=== PATIENT | male | born 1940 | race Caucasian/White ===

== ENCOUNTER 2017-05-29 11:09 | Emergency (ER) | payer MEDICARE, OTHER ==
--- OUTSIDE RECORDS SUMMARY | 2017-05-29 11:11 | XMS | Clinical Summary ---
:1940 Author Organization [facility] Address [address] [place] [address] Phone Care Team Providers Name Role Phone , Primary Care Provider Unavailable Allergies Not on File Current Medications Not on file Active Problems Not on file Social History Tobacco Use Types Packs/Day Years Used Date Never Assessed Sex Assigned at Date Recorded Not on file Last Filed Vital Signs Not on file Plan of Treatment Not on file Results Not on filefrom Last 3 Months
--- NOTE | 2017-05-29 13:00 | CT ---
CT BRAIN WITHOUT CONTRAST: Date: 05/29/17 HISTORY: Headache. FINDINGS: There are no previous exams for comparison. No evidence of acute infarct, hemorrhage, midline shift, or abnormal extra-axial fluid collections a re seen. The ventricular size is appropriate and the basilar cisterns are patent. The bony calvarium is intact. There is mild mucosal disease in the paranasal sinuses. IMPRESSION: No CT evidence of acute intracranial process. POS: [facility]
[2017-05-29 13:37] LABS: #Basophils 0.1 thou/uL (0.0-0.2); #Eosinphils 0.5 thou/uL (0.0-0.7); #Lymphocytes 2.3 thou/uL (1.20-3.40); #Monocytes 0.5 thou/uL (0.11-0.59); %Eosinophils 6.9 % (0.0-10.0); %Lymphocytes 30.8 % (21.0-51.0); %Monocytes 6.8 % (0.0-10.0); Hematocrit 50.2 % (42.0-52.0); Mean Platelet Volume 6.9 fL (7.4-10.4); Red Blood Cell (RBC) Count 5.24 mill/uL (4.70-6.10); White Blood Cell (WBC) Count 7.4 thou/uL (4.8-10.8)
[2017-05-29 14:03] LABS: ALT (SGPT) 19 U/L (8-55); AST (SGOT) 22 U/L (5-34); Alkaline Phosphatase 139 U/L (40-150); Anion Gap 9 mmol/L (10-20); BUN (Urea Nitrogen) 13 mg/dL (8.4-25.7); Bilirubin, Total 0.4 mg/dL (0.2-1.2); Calc. Creatinine Clearance 0 mL/min (70-130); Carbon Dioxide 26 mmol/L (23-31); Chloride 107 mmol/L (98-107); Estimated GFR-MDRD 70; Protein, Total 6.7 g/dL (5.8-8.1)
== END 2017-05-29 14:30 | disposition home or self-care (01) ==
LOC: ERS 11:09
DX: R51 Headache (principal); E78.5 Hyperlipidemia, unspecified; I10 Essential (primary) hypertension; I49.9 Cardiac arrhythmia, unspecified; Z87.891 Personal history of nicotine dependence; Z79.899 Other long term (current) drug therapy
CPT/HCPCS: 36415; 70450; 80053; 85025; 85652; 86140

== ENCOUNTER 2017-12-27 13:45 | Outpatient (CLI) | payer MEDICARE, OTHER | END 2017-12-27 13:46 | disposition home or self-care (01) | LOC: BICRAD 13:45 | PROVIDERS: ATTEND Physical Medicine & Rehabilitation | DX: M54.5 Low back pain (principal); M47.896 Other spondylosis, lumbar region | CPT/HCPCS: 72100 ==

== ENCOUNTER 2019-05-14 06:45 | Day surgery (SDC) | payer MEDICARE, OTHER ==
[2019-05-14 08:11] LABS: #Eosinphils 0.5 thou/uL (0.0-0.7); #Lymphocytes 1.7 thou/uL (1.20-3.40); #Monocytes 0.6 thou/uL (0.11-0.59); #Neutrophils 4.5 thou/uL (1.40-6.50); %Basophils 0.7 % (0.0-1.0); %Eosinophils 6.9 % (0.0-10.0); %Lymphocytes 23.1 % (21.0-51.0); %Monocytes 7.5 % (0.0-10.0); %Neutrophils 61.8 % (42.0-75.0); Hemoglobin 16.2 g/dL (14.0-18.0); Mean Corpuscular HGB CONC 33.9 g/dL (32.0-36.0); Mean Corpuscular Hemoglobin 32.1 pg (27.0-31.0); Mean Corpuscular Volume 94.8 fL (78.0-98.0); Mean Platelet Volume 6.6 fL (7.4-10.4); Platelet Count 188 thou/uL (130-400); RBC Distribution Width 11.9 % (11.5-14.5); Red Blood Cell (RBC) Count 5.03 mill/uL (4.70-6.10); White Blood Cell (WBC) Count 7.3 thou/uL (4.8-10.8)
[2019-05-14 08:14] LABS: ALT (SGPT) 21 U/L (8-55); AST (SGOT) 23 U/L (5-34); Albumin 4.2 g/dL (3.4-4.8); Alkaline Phosphatase 176 U/L (40-150); Anion Gap 8 mmol/L (10-20); BUN (Urea Nitrogen) 11 mg/dL (8.4-25.7); Calc. Creatinine Clearance 64 mL/min (70-130); Calcium 9.8 mg/dL (7.8-10.44); Carbon Dioxide 32 mmol/L (23-31); Chloride 102 mmol/L (98-107); Estimated GFR-MDRD 57; Globulin 2.8 g/dL (2.4-3.5); Glucose 118 mg/dL (83-110); Potassium 4.3 mmol/L (3.5-5.1); Sodium 138 mmol/L (136-145)
[2019-05-14] MEDS ORDERED: Methylene Blue 50 MG/10 ML AMPUL ONE (08:42)
[2019-05-14] MEDS ORDERED: Lidocaine 2% PF 5 ML VIAL ONE (08:42)
[2019-05-14] MEDS ORDERED: Bacitracin Zinc Ointment 30 gm TUBE ONE (08:42)
[2019-05-14] MEDS ORDERED: Bupivacaine HCl 0.5%/Epinephrine 1:200,000/PF 30 ml Vial ONE (08:42)
[2019-05-14] MEDS ORDERED: Fentanyl 100 MCG/2 ML VIAL ONE (08:42)
[2019-05-14] MEDS ORDERED: cefOXitin 2 GM VIAL ONE (08:58)
[2019-05-14] MEDS ORDERED: Sodium Chloride 0.9% 100 ML ONE (08:58)
[2019-05-14] MEDS ORDERED: Dexamethasone 20 MG/5 ML VIAL ONE (12:48)
[2019-05-14] MEDS ORDERED: Lidocaine 1% PF 5 ML VIAL ONE (12:48)
[2019-05-14] MEDS ORDERED: Ketorolac Tromethamine 30 MG/ML VIAL ONE (12:48)
[2019-05-14] MEDS ORDERED: PROPOFOL 200 MG/20 ML VIAL ONE (12:48)
[2019-05-14] MEDS ORDERED: Ondansetron PF 4 MG/2 ML Vial ONE (12:48)
--- NOTE | 2019-05-14 18:14 | EKG ---
Test Reason : PREOP Blood Pressure : / mmHG Vent. Rate : 062 BPM Atrial Rate : 000 BPM P-R Int : 000 ms QRS Dur : 162 ms QT Int : 528 ms P-R-T Axes : 136 -67 107 degrees QTc Int : 535 ms AV dual-paced rhythm Abnormal ECG When compared with ECG of 05-JUL-2015 12:42, Electronic ventricular pacemaker has replaced Sinus rhythm Confirmed by DR. Sade CHING ([id number]) on 05/14/2019 6:14:15 PM Referred By: SHANAE Confirmed By:DR. Sade CHING
--- NOTE | 2019-05-15 08:57 | OP ---
DATE OF PROCEDURE: 05/14/2019 PREOPERATIVE DIAGNOSIS: Anal mass. PROCEDURE PERFORMED: Excisional biopsy. INDICATIONS FOR PROCEDURE: A 78-year-old male, who has recently diagnosed prostate cancer, needs radiation therapy, was found to have a mass near the anus. FINDINGS: A 1.5 x 1 cm firm mass consistent with sebaceous cyst. DESCRIPTION OF PROCEDURE: After informed consent was obtained, the patient was taken to the operating room, given general mask anesthesia, and placed in lithotomy position. He had undergone a mechanical bowel prep at home. Perianal region was prepped and draped in usual fashion. Local anesthesia was infiltrated subcutaneously and deep. An elliptical incision was performed radially to excise the mass. This was sent to Pathology for further analysis. Hemostasis was achieved with electrocautery. The skin was closed with interrupted vertical mattress sutures of 3-0 chromic suture. Bacitracin was applied. Sterile bandage was applied. The patient tolerated the procedure well, transferred to Recovery in good condition. Sponge and needle count verified correct x2. Job ID: [id number]
== END 2019-05-14 11:53 | disposition home or self-care (01) ==
LOC: SDC 06:45
PROVIDERS: ATTEND Surgery
PROC: 0DBQXZX Excision of Anus, External Approach, Diagnostic (ICD-10-PCS; principal; 2019-05-14)
DX: K62.89 Other specified diseases of anus and rectum (principal); E78.5 Hyperlipidemia, unspecified; I50.9 Heart failure, unspecified; F17.290 Nicotine dependence, other tobacco product, uncomplicated; C61 Malignant neoplasm of prostate; Z79.01 Long term (current) use of anticoagulants; Z79.899 Other long term (current) drug therapy; Z95.810 Presence of automatic (implantable) cardiac defibrillator
CPT/HCPCS: 36415; 80053; 85025; 88304; 93005; 93010; J0670; J0690; J0694; J1100; J1885; J2001; J2405; J2704; J3010; J3490

== ENCOUNTER 2019-06-12 09:44 | Outpatient (CLI) | payer MEDICARE, OTHER ==
--- NOTE | 2019-06-12 14:28 | CT ---
CT ABDOMEN AND PELVIS PERFORMED WITH CONTRAST ENHANCEMENT: Date: 06/12/19 HISTORY: Left lower quadrant pain. Diagnosed with prostate cancer a few months ago, but has had pain before di agnosis. FINDINGS: The lung bases are clear of any infiltrative process. The liver shows two tiny subcentimeter hypodensities, most likely tiny cysts. The spleen and pancreas regions are unremarkable. Small gallstone is seen within the gallbladder. There is some minimal fat stranding that is not truly around the gallbladder, but more interposed between the gallbladder and hepatic flexure, and is of q uestionable significance. I do not see any diverticular disease in this region. The gallbladder itsel f does not show any definite wall thickening. Right and left adrenal glands, and right and left kidneys are normal in appearance. There is a 3.9 cm infrarenal abdominal aortic aneurysm present. No adenopathy in the abdomen and no free fluid. CT of pelvis was performed with contrast enhancement. Bladder appears unremarkable. There is no signi ficant pelvic lymphadenopathy. There is no inflammatory process. I do not see any evidence for divert iculitis and really there is no diverticular disease seen. Review of osseous structures show no lytic or blastic bone lesions. IMPRESSION: 1. No findings that would explain patient's left lower quadrant pain. 2. 3.9 cm infrarenal abdominal aortic aneurysm. 3. Small gallstone. There is some minimal fat stranding which is adjacent to the gallbladder, but ma inly more interposed between the gallbladder and hepatic flexure, somewhat nonspecific. If patient is having gallbladder-type symptoms, then ultrasound would be suggested for further assessment. POS: [facility]
[2019-06-12] MEDS ORDERED: ISOVUE-370 76%-LOCM 1 ML ONE (14:54)
== END 2019-06-12 09:45 | disposition home or self-care (01) ==
LOC: BICCT 09:44
PROVIDERS: ATTEND Radiology Radiation Oncology
DX: C61 Malignant neoplasm of prostate (principal); R10.32 Left lower quadrant pain; I71.4 Abdominal aortic aneurysm, without rupture; K80.20 Calculus of gallbladder without cholecystitis without obstruction
CPT/HCPCS: 74177; Q9966

== ENCOUNTER 2019-07-25 08:52 | Outpatient (CLI) | payer MEDICARE, OTHER ==
[2019-07-25] MEDS ORDERED: Iopamidol-370 76% 500 ML 1 ML ONE (11:36)
--- NOTE | 2019-07-25 11:41 | CT ---
CT BRAIN WITH AND WITHOUT IV CONTRAST: Date: 07/25/19 HISTORY: Trigeminal neuralgia. Right eye and facial pain. FINDINGS: Comparison made with noncontrasted exam of 07/12/19. Changes of cortical atrophy and chronic small vessel ischemic disease are again seen. No evidence of infarct, hemorrhage, mass, midline shift, or abnormal extra-axial fluid collections are noted. No abn ormal postcontrast enhancement is seen. The bony calvarium is intact. There is mucosal disease in the paranasal sinuses. IMPRESSION: No CT evidence of acute intracranial process or mass. POS: [facility]
== END 2019-07-25 08:53 | disposition home or self-care (01) ==
LOC: BICCT 08:52
PROVIDERS: ATTEND Nurse Practitioner Acute Care
DX: G50.0 Trigeminal neuralgia (principal)
CPT/HCPCS: 70470; 82565

== ENCOUNTER 2020-06-14 12:29 | Inpatient (IN) | payer MEDICARE, OTHER ==
[2020-06-14 13:36] LABS: #Eosinphils 0.2 thou/uL (0.0-0.7); #Lymphocytes 1.7 thou/uL (1.20-3.40); #Monocytes 1.1 thou/uL (0.11-0.59); #Neutrophils 6.9 thou/uL (1.40-6.50); %Basophils 0.5 % (0.0-1.0); %Eosinophils 1.9 % (0.0-10.0); %Lymphocytes 17.2 % (21.0-51.0); %Monocytes 11.3 % (0.0-10.0); %Neutrophils 69.1 % (42.0-75.0); Hemoglobin 14.8 g/dL (14.0-18.0); Mean Corpuscular HGB CONC 34.7 g/dL (32.0-36.0); Mean Corpuscular Hemoglobin 33.4 pg (27.0-31.0); Mean Corpuscular Volume 96.1 fL (78.0-98.0); Mean Platelet Volume 6.6 fL (7.4-10.4); Platelet Count 171 thou/uL (130-400); Red Blood Cell (RBC) Count 4.43 mill/uL (4.70-6.10)
--- NOTE | 2020-06-14 13:37 | RAD ---
XR Chest 1 View Portable HISTORY: Weakness COMPARISON: 07/05/2015 FINDINGS: The heart size is at upper limits of normal. A left-sided AICD is present The lungs are wel l expanded without focal areas of consolidation, pneumothorax or pleural effusions. IMPRESSION: No radiographic evidence of acute cardiopulmonary process.
[2020-06-14 13:58] LABS: Acetaminophen Less than 6.0 mcg/mL (10.0-30.0); Alcohol Less than 10 mg/dL (Less than 10); Salicylate Less than 8.0 mg/dL (15.0-30.0)
[2020-06-14 13:59] LABS: ALT (SGPT) 43 U/L (8-55); AST (SGOT) 41 U/L (5-34); Albumin 3.7 g/dL (3.4-4.8); Alkaline Phosphatase 200 U/L (40-110); Anion Gap 15 mmol/L (10-20); BUN (Urea Nitrogen) 18 mg/dL (8.4-25.7); Bilirubin, Total 0.8 mg/dL (0.2-1.2); Calc. Creatinine Clearance 0 mL/min (70-130); Calcium 8.7 mg/dL (7.8-10.44); Carbon Dioxide 26 mmol/L (23-31); Chloride 96 mmol/L (98-107); Estimated GFR-MDRD 59; Globulin 2.5 g/dL (2.4-3.5); Glucose 143 mg/dL (83-110); Potassium 4.4 mmol/L (3.5-5.1); Protein, Total 6.2 g/dL (5.8-8.1); Sodium 133 mmol/L (136-145)
--- NOTE | 2020-06-14 14:54 | CT ---
CT BRAIN WITHOUT CONTRAST: HISTORY:Altered mental status COMPARISON:07/25/2019 and 07/12/2019 FINDINGS: There are foci of decreased attenuation in the periventricular white matter, consistent with chronic small vessel ischemic disease. Changes of cortical atrophy is stable. No evidence of acute infarct, hemorrhage, midline shift or abnormal extra-axial fluid collections is seen. The ventricular size is appropriate and the basilar cisterns are patent. The bony calvarium is intact. There is mucosal disease in the paranasal sinuses. IMPRESSION: No CT evidence of acute intracranial process.
[2020-06-14 16:04] LABS: Bacteria/HPF None Seen HPF (None Seen); Bilirubin Negative (Negative); Blood, Urine Trace (Negative); Clarity Clear (Clear); Glucose, Urine (Dipstick) Normal (Negative); Ketone, Urine Negative (Negative); Leukocyte Negative Leu/uL (Negative); Nitrite Negative (Negative); Protein, Urine (Dipstick) 20 mg/dL (Neg-Trace); RBC/HPF 0-3 HPF (0-3); Specific Gravity, Urine 1.023 (1.002-1.036); Squamous Epithelial None Seen HPF (0-3); Urobilinogen Normal mg/dL (Less than 2); WBC/HPF 0-3 HPF (0-3)
[2020-06-14 16:09] LABS: Amphetamine Not Detected (NotDetected); Barbiturates Screen Not Detected (NotDetected); Benzodiazepine Screen Detected (NotDetected); Cocaine Metabolite Screen Not Detected (NotDetected); Medtox Control Line Valid? VALID (VALID); Medtox Reader # READER 4; Methadone Not Detected (NotDetected); Methamphetamine Not Detected (NotDetected); Opiate Screen Not Detected (NotDetected); Oxycodone Screen Not Detected (NotDetected); Phencyclidine (PCP) Not Detected (NotDetected); THC/Cannabinoid Screen Not Detected (NotDetected); Tricyclic Screen Not Detected (NotDetected)
[2020-06-14] MEDS ORDERED: Acetaminophen 325 MG TAB PO PRN (19:15)
[2020-06-14] MEDS ORDERED: Ondansetron PF 4 MG/2 ML Vial IVP PRN (19:15)
[2020-06-14] MEDS ORDERED: Ondansetron ODT 4 MG TAB SL PRN (19:15)
[2020-06-14] MEDS ORDERED: Ondansetron ODT 4 MG TAB PO PRN (20:25)
[2020-06-14] MEDS: OXcarbazepine 150 MG TAB PO SCH (22:25)
[2020-06-14] MEDS: Gabapentin 100 MG CAP PO SCH (22:25)
[2020-06-14] MEDS: Apixaban 5 MG TAB PO SCH (22:25)
[2020-06-14] MEDS: Furosemide 40 MG/4 ML VIAL SLOW IVP SCH (22:25)
[2020-06-14] MEDS: Atorvastatin Calcium 40 MG TAB PO SCH (22:25)
[2020-06-14] MEDS: Famotidine 20 MG TAB PO SCH (22:25)
--- NOTE | 2020-06-14 22:33 | HP ---
PRIMARY CARE PHYSICIAN: Dr. Whitaker. SPORTS BETTING MANAGER: Dr. Ramirez. CHIEF COMPLAINT: My is not acting normal. HISTORY OF PRESENT ILLNESS: The history of present illness is taken with conversation with the patient's as well as the patient's son over the telephone. Mr. Fenton is an 80-year-old gentleman, who has a history of third- degree AV block as well as nonischemic cardiomyopathy with an ejection fraction of 30% to 35%. He also has a history of what sounds like trigeminal neuralgia or some form of that, where he has shock-like headaches periodically. He was started on gabapentin in order to treat these headaches. This was done about a year ago. He was initially started off on about 100 mg and then he had seen an another neurologist, who then increased the dose up to 200 mg. He has recently seen yet another neurologist, a third neurologist, who then increased the dose of the gabapentin up to 600 mg three times a day. This was done, it is hard to tell from the 's description, but within the last couple of months. Then, she noticed in about 2 to 3 weeks ago, he started rambling and just talking a lot, talking about filters on the tractor and basically not making much sense. He did not seem excessively drowsy; however, then he got progressively more confused, talking basically about things that did not make sense and then, she says that she was getting extremely tired and was unable to rest herself and then the patient was not able to rest, and then she gave him a 0.5 mg tablet of Ativan. Then, he was having trouble standing up in fact he could not get up. He seemed to be stumbling and off balance and she had to call EMS and bring him to the emergency room. In the ER, they did a CT scan of the brain, which was negative. He had a urinalysis also negative. There was no evidence of any obvious infection. Lab work looked essentially normal, and he is being placed in observation for further evaluation. He also has not had any fever. She says he has noted some sinus congestion since Sunday, but no significant cough. She has noticed that he does appear to be working a little bit harder to breathe and she has noted some audible wheezing in the last three weeks, but no other symptoms such as nausea, vomiting, or diarrhea, no problems with pain etc, and otherwise the review of systems was negative per the . Formal review of systems is unobtainable due to the patient being confused. PAST MEDICAL HISTORY: Includes third-degree AV block, nonischemic cardiomyopathy with an EF of 30% to 35%, hyperlipidemia with sounds like a trigeminal neuralgia or some similar type headache. PAST SURGICAL HISTORY: He has had a dual-chamber pacemaker/AICD placed. Prior to that, he had a regular pacemaker. He has had a tonsillectomy. ALLERGIES: NO KNOWN DRUG ALLERGIES. SOCIAL HISTORY: He is . He is a nonsmoker and nondrinker. His is his surrogate decision maker. She would like him to be a full code. FAMILY HISTORY: Significant for [place] in his mother and she of a massive heart attack and father of COPD when he was 62. CURRENT MEDICATIONS: Include: 1. Oxcarbazepine 300 mg b.i.d. 2. Alprazolam 0.5 mg as needed. 3. Gabapentin 600 mg t.i.d. 4. Eliquis 5 mg p.o. b.i.d. 5. Atorvastatin 80 mg daily. 6. Lisinopril 5 mg daily. 7. Metoprolol 50 mg daily. 8. . 9. Torsemide 20 mg daily. PHYSICAL EXAMINATION: GENERAL: He is alert and oriented to person only. He is unable to tell me if he is in the hospital. He is unable to tell me the date or the year. VITAL SIGNS: Blood pressure was 133/92, heart rate 80, respiratory rate of 23, and temperature was 99.9. HEENT: Pupils are equal, round, and reactive. Extraocular muscles are intact. Sclerae anicteric. NECK: He did have what appeared to be an elevated jugular venous pressure or distention. There are no bruits. LUNGS: Essentially clear to auscultation. No wheezing. No rales. No rhonchi. CARDIOVASCULAR: He had a normal S1 and S2. I did not appreciate an S3 or S4. No murmurs, clicks, or rubs. ABDOMEN: Obese. It is soft, nontender, and nondistended. Positive for bowel sounds. No rebound. No guarding. EXTREMITIES: He has 1 to 2+ pitting edema. No calf tenderness. No joint effusions. NEUROLOGIC: He was difficult. He is moving all extremities, but was unable to follow commands. He appeared to have some mild lateral nystagmus on the ocular exam. SKIN AND INTEGUMENT: I did not appreciate any rashes or significant skin lesions. LABORATORY RESULTS: Sodium was 133, potassium 4.4, chloride is 96, CO2 is 26, BUN of 18, creatinine 1.18, glucose is 143. White blood cell count of 10, hemoglobin 14.8, hematocrit is 42.6, and platelet count is 171. Urinalysis was essentially negative except for some trace blood. He had a CT scan of the brain, which was negative for any acute intracranial process. Chest x-ray was significant for mild cardiomegaly. The AICD is visible. It appears that he does have some mild increase in pulmonary vascular markings and that is by my reading. EKG, I did not see the EKG and appears as it has not been done yet. ASSESSMENT: This is a pleasant 80-year-old gentleman, who presents to the emergency room with altered mental status, which appears to be progressive over the last 3 weeks and then more pronounced in the last couple of days. There is no obvious sign of infection. CT scan was negative for bleed or evidence of infarct. I suspect that his symptoms could be related to medication as he is on a fairly high dose of gabapentin, especially in an elderly gentleman and had recently been started on oxcarbazepine in addition to the gabapentin. In a discussion with the patient's son, it appears as if he has had some memory problems off and on that the his did not mention in the last 2 years and he may have an early dementia as well. He will be placed in observation. We will cut back on the dose of gabapentin. We can cut it off completely given the risk of rebound seizure. We will also cut the dose of the oxcarbazepine as well. Consider Neurology evaluation. It is unlikely that this represents a stroke; however, since he is on Eliquis for unknown reason, we may need to get an MRI of the brain as well. 1. Acute on chronic systolic heart failure. He appears to be slightly volume overloaded in my opinion. Clinically, he is using some accessory muscles of respiration despite his oxygen saturations being 100%. We will go ahead and give him a dose of IV Lasix. We will have his pacer AICD interrogated. This can give us some idea as to his volume status as well and consult his electric bath attendant, Dr. Ramirez for further recommendations. He had an appointment scheduled for this coming Sunday. 2. Hyperlipidemia. We will need to reconcile and restart his home medications for this. 3. Chronic anticoagulation with Eliquis. We will continue the Eliquis and further recommendations to follow. Job ID: [id number] ALAYNA
[2020-06-15 04:59] LABS: #Eosinphils 0.1 thou/uL (0.0-0.7); #Lymphocytes 1.8 thou/uL (1.20-3.40); #Monocytes 1.1 thou/uL (0.11-0.59); #Neutrophils 5.7 thou/uL (1.40-6.50); %Basophils 0.2 % (0.0-1.0); %Lymphocytes 20.2 % (21.0-51.0); %Monocytes 12.9 % (0.0-10.0); %Neutrophils 65.8 % (42.0-75.0); Hemoglobin 14.4 g/dL (14.0-18.0); Mean Corpuscular HGB CONC 32.9 g/dL (32.0-36.0); Mean Corpuscular Hemoglobin 31.4 pg (27.0-31.0); Mean Corpuscular Volume 95.3 fL (78.0-98.0); Mean Platelet Volume 6.9 fL (7.4-10.4); Platelet Count 172 thou/uL (130-400); RBC Distribution Width 12.9 % (11.5-14.5); White Blood Cell (WBC) Count 8.7 thou/uL (4.8-10.8)
[2020-06-15 05:22] LABS: Anion Gap 16 mmol/L (10-20); BUN (Urea Nitrogen) 18 mg/dL (8.4-25.7); Calc. Creatinine Clearance 61 mL/min (70-130); Calcium 9.2 mg/dL (7.8-10.44); Carbon Dioxide 28 mmol/L (23-31); Chloride 92 mmol/L (98-107); Cholesterol 170 mg/dl (< 200 Desired); Estimated GFR-MDRD 51; Glucose 169 mg/dL (83-110); HDL Cholesterol 34 mg/dL (>60 Neg Risk); LDL Cholesterol, Calculated 104 mg/dL; Potassium 4.6 mmol/L (3.5-5.1); Sodium 131 mmol/L (136-145); Triglycerides 161 mg/dL (Less than 150)
[2020-06-15] MEDS: Furosemide 40 MG/4 ML VIAL SLOW IVP SCH (06:07)
[2020-06-15] MEDS: Famotidine 20 MG TAB PO SCH ×2 (09:13→19:45)
[2020-06-15] MEDS: Acetaminophen 325 MG TAB PO PRN ×2 (09:13→22:48)
[2020-06-15] MEDS: Apixaban 5 MG TAB PO SCH ×2 (09:14→19:45)
[2020-06-15] MEDS: Lisinopril 5 MG TAB PO SCH (09:14)
[2020-06-15] MEDS: Gabapentin 100 MG CAP PO SCH ×3 (09:14→19:45)
[2020-06-15] MEDS: OXcarbazepine 150 MG TAB PO SCH ×2 (09:14→19:45)
--- NOTE | 2020-06-15 09:28 | PDOC.HOSPP ---
- Subjective Encounter Date: 06/15/20 Encounter Time: 09:26 Subjective: Mr. Fenton was seen today in follow-up of altered mental status. He is still confused this morning. He developed a fever early this morning. He appears less short of breath today. He is talking more, but it is not making much sense. He still can not follow directions consistently. - Objective Vital Signs & Weight: Vital Signs (12 hours) Temp Pulse Resp BP Pulse Ox 06/15/20 07:09 101.6 F H 81 24 H 127/68 93 L 06/15/20 04:00 98.3 F 133/71 06/15/20 03:03 100.9 F H 82 15 96 Weight Weight 219 lb I&O: 06/14/20 06/15/20 06/16/20 06:59 06:59 06:59 Intake Total 240 Balance 240 Result Diagrams: 06/15/20 04:36 06/15/20 04:36 Hospitalist ROS - Medication Medications: Active Medications Generic Name Dose Route Start Last Admin Trade Name Freq PRN Reason Stop Dose Admin Acetaminophen 650 mg 06/14/20 20:25 06/15/20 09:13 Acetaminophen 325 Mg Tab PO 650 mg Q4H PRN Administration Headache/Fever/Mild Pain (1-3) Apixaban 5 mg 06/14/20 21:00 06/15/20 09:14 Apixaban 5 Mg Tab PO 5 mg BID RADHA Administration Atorvastatin Calcium 40 mg 06/14/20 21:00 06/14/20 22:25 Atorvastatin Calcium 40 Mg Tab PO 40 mg HS RADHA Administration Famotidine 20 mg 06/14/20 21:00 06/15/20 09:13 Famotidine 20 Mg Tab PO 20 mg BID RADHA Administration Gabapentin 200 mg 06/14/20 21:00 06/15/20 09:14 Gabapentin 100 Mg Cap PO 200 mg TID RADHA Administration Lisinopril 5 mg 06/15/20 09:00 06/15/20 09:14 Lisinopril 5 Mg Tab PO 5 mg DAILY RADHA Administration Metoprolol Succinate 50 mg 06/15/20 09:00 06/15/20 09:14 Metoprolol Succinate Xl 50 Mg Tab PO 50 mg DAILY RADHA Administration Oxcarbazepine 150 mg 06/14/20 21:00 06/15/20 09:14 Oxcarbazepine 150 Mg Tab PO 150 mg BID RADHA Administration Sodium Chloride 10 ml 06/14/20 19:15 06/15/20 09:13 Flush - Normal Saline 10 Ml Syringe IVF 10 ml PRN PRN Administration Saline Flush - Exam General Appearance: NAD, awake alert Eye: PERRL, anicteric sclera Heart: RRR, no murmur, no gallops, no rubs, normal peripheral pulses Respiratory: CTAB (+ occasional wheeze), no ronchi, rales Gastrointestinal: soft, non-tender, non-distended, normal bowel sounds, no palpable masses, no hepatomegaly Extremities: no cyanosis, no clubbing, 1+ LE edema Neurological: no focal deficits Hosp A/P (1) Metabolic encephalopathy Code(s): G93.41 - METABOLIC ENCEPHALOPATHY Status: Acute (2) Fever Code(s): R50.9 - FEVER, UNSPECIFIED Status: Acute (3) Nonischemic cardiomyopathy Code(s): I42.8 - OTHER CARDIOMYOPATHIES Status: Chronic (4) Hyperlipidemia Code(s): E78.5 - HYPERLIPIDEMIA, UNSPECIFIED Status: Chronic - Plan * Metabolic encephalopathy- possibly related to medications, specifically Gabapentin- will continue to reduce the dose. Down to 100mg TID * Fever- will place him in isolation pending the results of the COVID screen. If the screen is negative, and he continues to have confusion, may need an LP * Will obtain blood cultures, but old off on antibiotics at this time * Cardiomyopathy- his repiratory status seems a bit better, and his BNP levels were normal- will discontinue Lasix IV, re-start home Torsemide tomorrow * Dyslipdemia- continue * Await Neurology and Cardiology evaluation * Echo and carotid dopplers as well as EEG are pending
--- NOTE | 2020-06-15 10:35 | ULT ---
BILATERAL CAROTID DUPLEX ULTRASOUND: HISTORY: Altered mental status TECHNIQUE: Grayscale, color-flow and spectral Doppler ultrasound imaging of the extracranial carotid artery syst ems was performed bilaterally. FINDINGS: There is mild plaque formation on either side. The peak systolic velocity in the right ICA measures 80 cm/s with an end-diastolic velocity of 13 cm/ s and a systolic ratio of 0.66. The peak systolic velocity in the left ICA measures 89 cm/s with an end-diastolic velocity of 11 cm/s and a systolic ratio of 0.67. Flow in both vertebral arteries remains antegrade. IMPRESSION: No evidence of hemodynamically significant stenosis in either ICA.
[2020-06-15 11:56] LABS: SARS-CoV-2 MS2 Positive; SARS-CoV-2 N Gene Positive; SARS-CoV-2 S Gene Positive; SARS-CoV-2 by NAA DETECTED (NotDetected); SARS-CoV-2 orf1ab Positive
--- NOTE | 2020-06-15 13:13 | CON ---
NEUROLOGY CONSULTATION DATE OF CONSULTATION: 06/15/2020 REASON FOR CONSULTATION: Altered mental status. HISTORY OF PRESENT ILLNESS: Mr. Fenton is an 80-year-old gentlemen with history significant for third-degree AV block, nonischemic cardiomyopathy with ejection fraction 30% to 35%, trigeminal neuralgia, presented with altered mental status, which has been progressive since the last three weeks. The patient is unable to provide a history, so history is taken from review of the medical records. Per records, he was initially started on gabapentin 100 mg t.i.d. and the dose was increased to 200 mg and then he saw another neurologist and the dose was increased up to 600 mg t.i.d. All these changes were made since the last couple of months. Per , she noticed that since the last 2-3 weeks, he has been getting increasingly confused and his speech was not making sense. He was unable to rest, so the gave him Ativan, but still there has been instances when he is off-balance. Prior to coming to the emergency room, he had trouble standing and he was unsteady on feet, so the decided to bring him to the emergency room for further management. In the emergency room, head CT was done, which was negative for acute intracranial process. Lab work was essentially normal except for mild hyponatremia of 133. Per , there was no history of fever, nausea, vomiting, chest pain, abdominal pain, focal weakness, focal paresthesias, problems with speech, problem with swallowing, but does have baseline confusion which progressively became worse. PAST MEDICAL HISTORY: Third-degree heart block, nonischemic cardiomyopathy with ejection fraction 30% to 35%, hyperlipidemia, trigeminal neuralgia. PAST SURGICAL HISTORY: Dual chamber pacemaker/AICD placement, tonsillectomy. ALLERGIES: NO KNOWN DRUG ALLERGIES. SOCIAL HISTORY: , lives with his . denies smoking alcohol, illegal drug use. FAMILY HISTORY: Significant for coronary artery disease and COPD. HOME MEDICATIONS: 1. Oxcarbazepine 300 mg p.o. b.i.d. 2. Alprazolam 0.5 mg as needed. 3. Gabapentin 600 mg t.i.d. 4. Eliquis 5 mg p.o. b.i.d. 5. Atorvastatin 80 mg daily. 6. Lisinopril 5 mg daily. 7. Metoprolol 50 mg daily. 8. Torsemide 20 mg daily. Vital Signs & Weight: Vital Signs (12 hours) Temp Pulse Resp BP Pulse Ox 06/15/20 07:09 101.6 F H 81 24 H 127/68 93 L 06/15/20 04:00 98.3 F 133/71 06/15/20 03:03 100.9 F H 82 15 96 Weight Weight 219 lb I&O: 06/14/20 06/15/20 06/16/20 06:59 06:59 06:59 Intake Total 240 Balance 240 Active Medications Generic Name Dose Route Start Last Admin Trade Name Freq PRN Reason Stop Dose Admin Acetaminophen 650 mg 06/14/20 20:25 06/15/20 09:13 Acetaminophen 325 Mg Tab PO 650 mg Q4H PRN Administration Headache/Fever/Mild Pain (1-3) Apixaban 5 mg 06/14/20 21:00 06/15/20 09:14 Apixaban 5 Mg Tab PO 5 mg BID RADHA Administration Atorvastatin Calcium 40 mg 06/14/20 21:00 06/14/20 22:25 Atorvastatin Calcium 40 Mg Tab PO 40 mg HS RADHA Administration Famotidine 20 mg 06/14/20 21:00 06/15/20 09:13 Famotidine 20 Mg Tab PO 20 mg BID RADAH Administration Gabapentin 200 mg 06/14/20 21:00 06/15/20 09:14 Gabapentin 100 Mg Cap PO 200 mg TID RADHA Administration Lisinopril 5 mg 06/15/20 09:00 06/15/20 09:14 Lisinopril 5 Mg Tab PO 5 mg DAILY RADHA Administration Metoprolol Succinate 50 mg 06/15/20 09:00 06/15/20 09:14 Metoprolol Succinate Xl 50 Mg Tab PO 50 mg DAILY RADHA Administration Oxcarbazepine 150 mg 06/14/20 21:00 06/15/20 09:14 Oxcarbazepine 150 Mg Tab PO 150 mg BID RADHA Administration Sodium Chloride 10 ml 06/14/20 19:15 06/15/20 09:13 Flush - Normal Saline 10 Ml Syringe IVF 10 ml PRN PRN Administration Saline Flush - Exam General Appearance: NAD, awake alert Eye: PERRL, anicteric sclera Heart: RRR, no murmur, no gallops, no rubs, normal peripheral pulses Respiratory: CTAB (+ occasional wheeze), no ronchi, rales Gastrointestinal: soft, non-tender, non-distended, normal bowel sounds, no palpable masses, no hepatomegaly Extremities: no cyanosis, no clubbing, 1+ LE edema Neurological: Mental status, the patient is alert, awake, but does not follow commands. He does maintain eye contact, but is not oriented to person, place, or time. Cranial nerves; pupils 4 mm, round and reactive to light. Face symmetric. Tongue midline. Moves neck in both direction. Motor, muscle, tone and bulk are normal. Moving all 4 extremities equally and symmetrically. Sensory, withdraws all 4 extremities to nailbed pressure. Gait deferred due to patient's safety reasons. DATA REVIEWED: I reviewed the labs, which were significant for a sodium of 131. Urinalysis was unremarkable. IMAGING: CT scan reviewed, which was negative for acute intracranial pathology. ASSESSMENT AND PLAN: (1) Metabolic encephalopathy Code(s): G93.41 - METABOLIC ENCEPHALOPATHY Status: Acute (2) Fever Code(s): R50.9 - FEVER, UNSPECIFIED Status: Acute (3) Nonischemic cardiomyopathy Code(s): I42.8 - OTHER CARDIOMYOPATHIES Status: Chronic (4) Hyperlipidemia Code(s): E78.5 - HYPERLIPIDEMIA, UNSPECIFIED Status: Chronic Mr. Anton Fenton is 80-year-old male who presented to the emergency room, because of progressive altered mental status since the last three weeks, which has become more pronounced since the last the last couple of days. Neurology was consulted to rule out intracranial process. The patient had patient has progressive altered mental status and the last few weeks, but more pronounced in the last couple of days, but head CT was negative for acute intracranial process, so stroke or bleed is unlikely at this point. Altered mental status seems to be multifactorial secondary to infectious and metabolic etiologies or polypharmacy. There is a concern about polypharmacy and recent medication changes, which can cause altered mental status. The patient is on a combination of gabapentin and oxcarbazepine, which can contribute to altered mental status in elderly population. Trileptal dose should be reduced as it is known to cause confusion and hyponatremia in older population. Consider decreasing the dose of gabapentin as it causes sedation and altered mental status too, but slow taper of gabapentin and look for signs of gabapentin withdrawal which include agitation, sweating and sometimes more confusion which can further complicate the picture. Continue home medications. Continue medical management per primary team . Neuro checks every 4 hours. DVT prophylaxis, PT/OT/speech We will continue to follow. Thank you for the consult. Job ID: [id number] ALAYNA
[2020-06-15] MEDS: Atorvastatin Calcium 40 MG TAB PO SCH (19:46)
--- NOTE | 2020-06-15 22:17 | CON ---
DATE OF CONSULTATION: REASON: Altered mental state and COVID infection. 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 About 2 or 3 weeks ago, he developed speech impairment and some confusional state, and then he became more confused. He would not be able to rest. His gave him Ativan, and he could not stand up, start stumbling while walking, so eventually EMS was called and he was brought to the emergency room. In the ER, CT of brain did not show any acute findings. Apparently since Sunday, he is having some sinus congestion but no cough, and he was having a little bit more increased frequency of breathing, some wheezing as well. No seizure activity. No vomiting, hematemesis or melena. No diarrhea. PAST MEDICAL HISTORY: AV block, third degree, nonischemic cardiomyopathy, EF 30% with AICD in place, trigeminal neuralgia. PAST SURGICAL HISTORY: As above. ALLERGIES: NONE. SOCIAL HISTORY: . Never smoker. FAMILY HISTORY: Coronary artery disease. MEDICATIONS: At home; 1. Oxcarbazepine. 2. Alprazolam. 3. Gabapentin. 4. Eliquis. 5. Atorvastatin. 6. Lisinopril. 7. Metoprolol. 8. Torsemide. Here he is on: 1. Metoprolol. 2. Oxcarbazepine. 3. Vitamin B. 4. Famotidine. 5. Ascorbic acid. 6. Eliquis. PHYSICAL EXAMINATION: VITAL SIGNS: T-max 101.6, BP 115/59, heart rate 75, respiratory rate 22, O2 saturation 94. SKIN: No areas of skin breakdown. Actually, he has a peripheral IV access in the right upper extremity. No Mejia catheter. LYMPH NODE: No lymphadenopathy. HEENT: Ocular movements conjugate. His pupils are constricted. He would not open his mouth for exam. NECK: Appears supple. No jugular vein distention. LUNGS: Symmetric. Clear breath sounds. CARDIAC: S1, S2. Regular rate. ABDOMEN: Soft, not distended or tender. Question of bladder distention. EXTREMITIES: No joint inflammatory activity. Moves extremities equally, but he does not follow commands. No edema. Pulses 1+ in dorsalis pedis. Plantar responses are flexor. No clonus. NEURO: He does not establish eye contact, does not follow commands, he does not answer questions, sometimes he will look or react to things that I say for example mostly his name and simple questions like that. DIAGNOSTIC STUDIES: LABORATORY RESULTS: His sodium 133 and 131, creatinine 1.18 and 1.35. AST 41, ALT 43, alkaline phosphatase 200, albumin 3.7, globulin 2.5. BNP 70. Urinalysis was normal. White cell count was 10 and 8.7, hemoglobin 14, platelets 172, 65% neutrophils, 20% lymphocytes. His toxic screen was benzodiazepine detected. Plasma alcohol less than 10. COVID was detected. IMAGING STUDIES: Chest x-ray from the 12 with no acute cardiopulmonary process identified. Brain CT, I already discussed that. ASSESSMENT: Confusional state for the past 3 weeks, trigeminal neuralgia, ischemic cardiomyopathy with AICD in place, on Eliquis, coronavirus disease infection of uncertain duration. DISCUSSION: This is a somewhat complex case. The patients with SARS-COVID infection frequently will develop altered mental state due to either to metabolic derangements associated with COVID infection or due to primary CARTOGRAPHY TEACHER insults including the CVAs and other vascular phenomena associated with the endothelial changes secondary to SARS COVID-2 infection. Direct SARS CoV2 encephalitis is not common. We will go ahead and add Decadron, as he is starting to desat. Since we do not know onset of illness, we will not prescribe antivirals, except may be convalescent plasma. In terms of the evaluation of his mental state, an MRI would be ideal, but he is not eligible due to AICD. Spinal fluid evaluation would be another thing to consider depending on clinical course to evaluate for primary CARTOGRAPHY TEACHER inflamm process. Job ID: [id number] [facility]ITAL[facility]
[2020-06-16] MEDS: Acetaminophen 325 MG TAB PO PRN ×2 (04:33→18:19)
[2020-06-16 04:57] LABS: #Lymphocytes 1.2 thou/uL (1.20-3.40); #Monocytes 1.1 thou/uL (0.11-0.59); #Neutrophils 7.1 thou/uL (1.40-6.50); %Basophils 0.4 % (0.0-1.0); %Eosinophils 0.3 % (0.0-10.0); %Lymphocytes 12.5 % (21.0-51.0); %Monocytes 11.5 % (0.0-10.0); %Neutrophils 75.3 % (42.0-75.0); Hemoglobin 14.8 g/dL (14.0-18.0); Mean Corpuscular HGB CONC 33.8 g/dL (32.0-36.0); Mean Corpuscular Hemoglobin 32.3 pg (27.0-31.0); Mean Corpuscular Volume 95.3 fL (78.0-98.0); Mean Platelet Volume 6.8 fL (7.4-10.4); Platelet Count 166 thou/uL (130-400); Red Blood Cell (RBC) Count 4.59 mill/uL (4.70-6.10); White Blood Cell (WBC) Count 9.5 thou/uL (4.8-10.8)
[2020-06-16 05:21] LABS: Anion Gap 13 mmol/L (10-20); BUN (Urea Nitrogen) 29 mg/dL (8.4-25.7); Calc. Creatinine Clearance 60 mL/min (70-130); Calcium 9.5 mg/dL (7.8-10.44); Carbon Dioxide 33 mmol/L (23-31); Chloride 90 mmol/L (98-107); Estimated GFR-MDRD 49; Glucose 179 mg/dL (83-110); Potassium 3.8 mmol/L (3.5-5.1); Sodium 132 mmol/L (136-145)
[2020-06-16] MEDS: Lisinopril 5 MG TAB PO SCH (09:07)
[2020-06-16] MEDS: Folic Acid/Vit B Comp W-C PO SCH (09:10)
[2020-06-16] MEDS: Gabapentin 100 MG CAP PO SCH ×3 (09:10→20:40)
[2020-06-16] MEDS: OXcarbazepine 150 MG TAB PO SCH ×2 (09:10→20:41)
[2020-06-16] MEDS: Dexamethasone 4 mg/ml Vial SLOW IVP SCH (09:10)
[2020-06-16] MEDS: Ascorbic Acid 500 mg Chewable Tablet PO SCH (09:10)
[2020-06-16] MEDS: Famotidine 20 MG TAB PO SCH ×2 (09:10→20:41)
[2020-06-16] MEDS: Apixaban 5 MG TAB PO SCH ×2 (09:12→20:41)
--- NOTE | 2020-06-16 09:52 | PDOC.HOSPP ---
- Subjective Encounter Date: 06/16/20 Encounter Time: 09:49 Subjective: Mr. Fenton was seen today in follow-up. He is still encephalopathic. He is talking more according to his nurse, but he did not say much for me. - Objective Vital Signs & Weight: Vital Signs (12 hours) Temp Pulse Pulse Resp BP BP Pulse Ox 06/16/20 09:07 78 06/16/20 09:00 98.0 F 77 24 H 148/96 H 100 06/16/20 06:32 101.1 F H 06/16/20 04:00 101.4 F H 78 24 H 154/74 H 96 06/16/20 01:00 100.4 F H 76 26 H 109/57 L 96 06/15/20 23:05 101.6 F H 79 24 H 117/56 L Weight Admit Weight 219 lb Weight 219 lb I&O: 06/15/20 06/16/20 06/17/20 06:59 06:59 06:59 Intake Total 240 1110 Output Total 100 Balance 240 1010 Result Diagrams: 06/16/20 04:50 06/16/20 04:50 Hospitalist ROS - Medication Medications: Active Medications Generic Name Dose Route Start Last Admin Trade Name Freq PRN Reason Stop Dose Admin Acetaminophen 650 mg 06/14/20 20:25 06/16/20 04:33 Acetaminophen 325 Mg Tab PO 650 mg Q4H PRN Administration Headache/Fever/Mild Pain (1-3) Apixaban 5 mg 06/14/20 21:00 06/16/20 09:12 Apixaban 5 Mg Tab PO 5 mg BID RADHA Administration Ascorbic Acid 1,000 mg 06/16/20 09:00 06/16/20 09:10 Ascorbic Acid 500 Mg Chewable Tablet PO 1,000 mg DAILY RADHA Administration Atorvastatin Calcium 40 mg 06/14/20 21:00 06/15/20 19:46 Atorvastatin Calcium 40 Mg Tab PO 40 mg HS RADHA Administration Dexamethasone 6 mg 06/16/20 09:00 06/16/20 09:10 Dexamethasone 4 Mg/Ml Vial SLOW IVP 6 mg DAILY RADHA Administration Famotidine 20 mg 06/14/20 21:00 06/16/20 09:10 Famotidine 20 Mg Tab PO 20 mg BID RADHA Administration Gabapentin 200 mg 06/14/20 21:00 06/16/20 09:10 Gabapentin 100 Mg Cap PO 200 mg TID RADHA Administration Lisinopril 5 mg 06/15/20 09:00 06/16/20 09:07 Lisinopril 5 Mg Tab PO 5 mg DAILY RADHA Administration Metoprolol Succinate 50 mg 06/15/20 09:00 06/16/20 09:10 Metoprolol Succinate Xl 50 Mg Tab PO 50 mg DAILY RADHA Administration Oxcarbazepine 150 mg 06/14/20 21:00 06/16/20 09:10 Oxcarbazepine 150 Mg Tab PO 150 mg BID RADHA Administration Sodium Chloride 10 ml 06/14/20 19:15 06/15/20 09:13 Flush - Normal Saline 10 Ml Syringe IVF 10 ml PRN PRN Administration Saline Flush Vitamin B Complex/Vit C/Folic Acid 1 tab 06/16/20 09:00 06/16/20 09:10 Folic Acid/Vit B Comp W-C PO 1 tab DAILY RADHA Administration - Exam Eye: PERRL, anicteric sclera Heart: RRR, no murmur, no gallops, no rubs, normal peripheral pulses Respiratory: CTAB, no wheezes, no rales, no ronchi, normal chest expansion, no tachypnea Gastrointestinal: soft, non-tender, non-distended, normal bowel sounds, no palpable masses, no hepatomegaly Extremities: no cyanosis, no edema Neurological: no focal deficits Hosp A/P (1) Metabolic encephalopathy Code(s): G93.41 - METABOLIC ENCEPHALOPATHY Status: Acute (2) Fever Code(s): R50.9 - FEVER, UNSPECIFIED Status: Acute (3) Nonischemic cardiomyopathy Code(s): I42.8 - OTHER CARDIOMYOPATHIES Status: Chronic (4) Hyperlipidemia Code(s): E78.5 - HYPERLIPIDEMIA, UNSPECIFIED Status: Chronic - Plan * Metabolic encephalopathy- Likely due to COVID infection * ID recommendations were noted. * WIll continue Decadron * Monitor inflammatory markers * He is already on full anticoagulation with Eliquis * Chronic systolic heart failure- compensated- discussed with Dr. Ramirez- will re-start Torsemide * Dyslipdemia- continue * Can cancel Echo- this will not add much to the management of this patient, and also due to COVID positive status * Carotid doppler findings noted
--- NOTE | 2020-06-16 10:03 | PRG ---
DATE OF SERVICE: 06/16/2020 SUBJECTIVE: Mr. Fenton yesterday was found to have reached elective replacement indicator on his defibrillator. Otherwise, the patient was found to have short runs of nonsustained ventricular tachycardia. Atrial fibrillation burden very low. The patient was found to be COVID positive. Physical examination therefore not done. Note done by chart review. The patient yesterday when I examined him was confused and disoriented. Today, his blood pressure 148/96, pulse 77. As mentioned, the device was interrogated as outlined above. It also shows that the OptiVol is not high indicating he is not currently in heart failure. ASSESSMENT: 1. COVID positive infection with disorientation. 2. Congestive heart failure systolic-diastolic mixed, currently compensated. 3. Defibrillator/biventricular device has reached elective replacement indicator. PLAN: 1. Continue supportive care. 2. Resume torsemide tomorrow. 3. After being discharged, we will need to arrange for outpatient changing of his defibrillator generator, this needs to be done within the next few months. Job ID: [id number]
[2020-06-16] MEDS: Atorvastatin Calcium 40 MG TAB PO SCH (20:40)
[2020-06-17] MEDS: Acetaminophen 325 MG TAB PO PRN ×3 (01:20→22:17)
[2020-06-17 05:27] LABS: #Lymphocytes 1.3 thou/uL (1.20-3.40); #Monocytes 1.2 thou/uL (0.11-0.59); #Neutrophils 8.9 thou/uL (1.40-6.50); %Basophils 0.2 % (0.0-1.0); %Eosinophils 0.1 % (0.0-10.0); %Monocytes 10.4 % (0.0-10.0); %Neutrophils 78.4 % (42.0-75.0); Hemoglobin 14.3 g/dL (14.0-18.0); Mean Corpuscular HGB CONC 34.7 g/dL (32.0-36.0); Mean Corpuscular Hemoglobin 32.8 pg (27.0-31.0); Mean Corpuscular Volume 94.5 fL (78.0-98.0); Mean Platelet Volume 7.2 fL (7.4-10.4); Platelet Count 165 thou/uL (130-400); RBC Distribution Width 12.9 % (11.5-14.5); Red Blood Cell (RBC) Count 4.37 mill/uL (4.70-6.10); White Blood Cell (WBC) Count 11.4 thou/uL (4.8-10.8)
[2020-06-17 05:55] LABS: Anion Gap 13 mmol/L (10-20); BUN (Urea Nitrogen) 38 mg/dL (8.4-25.7); Calc. Creatinine Clearance 53 mL/min (70-130); Calcium 9.3 mg/dL (7.8-10.44); Carbon Dioxide 30 mmol/L (23-31); Chloride 92 mmol/L (98-107); Estimated GFR-MDRD 43; Glucose 203 mg/dL (83-110); Sodium 131 mmol/L (136-145)
[2020-06-17] MEDS: OXcarbazepine 150 MG TAB PO SCH ×2 (08:46→19:42)
[2020-06-17] MEDS: Lisinopril 5 MG TAB PO SCH (08:46)
[2020-06-17] MEDS: Gabapentin 100 MG CAP PO SCH ×3 (08:47→19:41)
[2020-06-17] MEDS: Famotidine 20 MG TAB PO SCH ×2 (08:47→19:41)
[2020-06-17] MEDS: Dexamethasone 4 mg/ml Vial SLOW IVP SCH (08:47)
[2020-06-17] MEDS: Ascorbic Acid 500 mg Chewable Tablet PO SCH (08:47)
[2020-06-17] MEDS: Apixaban 5 MG TAB PO SCH ×2 (08:47→19:42)
[2020-06-17] MEDS: Folic Acid/Vit B Comp W-C PO SCH (08:47)
[2020-06-17] MEDS ORDERED: Torsemide 20 MG TAB PO SCH (09:00)
--- NOTE | 2020-06-17 10:48 | PDOC.HOSPP ---
- Subjective Encounter Date: 06/17/20 Encounter Time: 10:46 Subjective: Mr. Fenton was seen today in follow-up of encephalopathy due to COVID infection. He is still confused. He is saying a few more words. When asked what is thename of your . He responded " My 's name is... " but could not answer. This is more than yesterday. - Objective Vital Signs & Weight: Vital Signs (12 hours) Temp Pulse Resp BP Pulse Ox 06/17/20 08:45 99.1 F 80 20 127/88 96 06/17/20 04:00 101.8 F H 79 22 H 134/72 100 Weight Admit Weight 219 lb Weight 219 lb I&O: 06/16/20 06/17/20 06/18/20 06:59 06:59 06:59 Intake Total 1110 530 Output Total 100 Balance 1010 530 Result Diagrams: 06/17/20 05:13 06/17/20 05:13 Hospitalist ROS - Medication Medications: Active Medications Generic Name Dose Route Start Last Admin Trade Name Freq PRN Reason Stop Dose Admin Acetaminophen 650 mg 06/14/20 20:25 06/17/20 05:47 Acetaminophen 325 Mg Tab PO 650 mg Q4H PRN Administration Headache/Fever/Mild Pain (1-3) Apixaban 5 mg 06/14/20 21:00 06/17/20 08:47 Apixaban 5 Mg Tab PO 5 mg BID RADHA Administration Ascorbic Acid 1,000 mg 06/16/20 09:00 06/17/20 08:47 Ascorbic Acid 500 Mg Chewable Tablet PO 1,000 mg DAILY RADHA Administration Atorvastatin Calcium 40 mg 06/14/20 21:00 06/16/20 20:40 Atorvastatin Calcium 40 Mg Tab PO 40 mg HS RADHA Administration Dexamethasone 6 mg 06/16/20 09:00 06/17/20 08:47 Dexamethasone 4 Mg/Ml Vial SLOW IVP 6 mg DAILY RADHA Administration Famotidine 20 mg 06/14/20 21:00 06/17/20 08:47 Famotidine 20 Mg Tab PO 20 mg BID RADHA Administration Gabapentin 200 mg 06/14/20 21:00 06/17/20 08:47 Gabapentin 100 Mg Cap PO 200 mg TID RADHA Administration Lisinopril 5 mg 06/15/20 09:00 06/17/20 08:46 Lisinopril 5 Mg Tab PO 5 mg DAILY RADHA Administration Metoprolol Succinate 50 mg 06/15/20 09:00 06/17/20 08:47 Metoprolol Succinate Xl 50 Mg Tab PO 50 mg DAILY RADHA Administration Oxcarbazepine 150 mg 06/14/20 21:00 06/17/20 08:46 Oxcarbazepine 150 Mg Tab PO 150 mg BID RADHA Administration Sodium Chloride 10 ml 06/14/20 19:15 06/17/20 08:48 Flush - Normal Saline 10 Ml Syringe IVF 10 ml PRN PRN Administration Saline Flush Vitamin B Complex/Vit C/Folic Acid 1 tab 06/16/20 09:00 06/17/20 08:47 Folic Acid/Vit B Comp W-C PO 1 tab DAILY RADHA Administration - Exam Eye: PERRL, anicteric sclera Heart: RRR, no murmur, no gallops, no rubs, normal peripheral pulses Respiratory: no wheezes, no ronchi, rales (+ bilateral rales at the bases) Gastrointestinal: soft, non-tender, non-distended, normal bowel sounds, no palpable masses, no hepatomegaly Extremities: no cyanosis, 1+ LE edema Hosp A/P (1) Metabolic encephalopathy Code(s): G93.41 - METABOLIC ENCEPHALOPATHY Status: Acute (2) COVID-19 virus infection Code(s): U07.1 - COVID-19 Status: Acute (3) Fever Code(s): R50.9 - FEVER, UNSPECIFIED Status: Acute (4) Nonischemic cardiomyopathy Code(s): I42.8 - OTHER CARDIOMYOPATHIES Status: Chronic (5) Hyperlipidemia Code(s): E78.5 - HYPERLIPIDEMIA, UNSPECIFIED Status: Chronic - Plan * Metabolic encephalopathy due to COVID infection * He received Convalescent Serum, and is currently on Decadron * Continue to monitor inflammatory markers * He is already on full anticoagulation with Eliquis * Chronic systolic heart failure- compensated * Dyslipdemia- stable
--- NOTE | 2020-06-17 16:11 | PRG ---
DATE OF SERVICE: 06/17/2020 SUBJECTIVE: Mr. Fenton is much more alert. He looked at me in the eyes and answered a bunch of questions fairly accurately. He did not know exactly where he was, but he knew it was not his home. He denied any pain. He is voiding without difficulty. OBJECTIVE: VITAL SIGNS: T-max 101.8 at 4:00 in the morning today, now it is 96.1; heart rate 69; O2 saturation 96% on 2 L nasal cannula; blood pressure 120/50. GENERAL: Appears in no distress. Bright-eyed and moves extremities equally. LUNGS: Symmetric, clear breath sounds. HEART: S1 and S2, regular rate. ABDOMEN: Soft. Question of bladder distention that is going to be checked by the nurse with a bladder scan. LABORATORY DATA: White cell count 11.4, hemoglobin 14, platelets 165. Creatinine is up a little bit 1.55. Ferritin went up a bit to 849 and CRP is up to 28. ASSESSMENT AND DISCUSSION: Confusional state, past 3 weeks; trigeminal neuralgia; ischemic cardiomyopathy, automatic implantable cardioverter-defibrillator in place, on Eliquis; and COVID infection of unclear duration, so he got convalescent plasma, is getting Decadron and seems his mental status improved. I would believe that the medication is the more likely culprit here or may be a combination of factors since COVID associated encephalopathy is does not improve this quickly. Check his bladder scan to rule out urinary retention other than that. Continue monitoring his progress. Job ID: [id number] MTDD
--- NOTE | 2020-06-17 17:01 | RAD ---
Chest one view HISTORY: Fever. COVID pneumonia. COMPARISON: 06/14/2020. FINDINGS: Cardiac silhouette is magnified by projection. Pulmonary vasculature are unremarkable. Mediastinum is midline with a multi lead left subclavian cardiac electronic device. No lobar consolidation or evidence of pneumothorax. IMPRESSION : Stable exam. No active cardiopulmonary abnormalities are demonstrated.
[2020-06-17] MEDS: Atorvastatin Calcium 40 MG TAB PO SCH (19:42)
[2020-06-18 05:13] LABS: Anion Gap 15 mmol/L (10-20); BUN (Urea Nitrogen) 44 mg/dL (8.4-25.7); Calc. Creatinine Clearance 56 mL/min (70-130); Calcium 9.7 mg/dL (7.8-10.44); Carbon Dioxide 31 mmol/L (23-31); Chloride 91 mmol/L (98-107); Estimated GFR-MDRD 46; Glucose 200 mg/dL (83-110); Potassium 3.8 mmol/L (3.5-5.1); Sodium 133 mmol/L (136-145)
[2020-06-18 05:48] LABS: Band 36 % (5-11); Hemoglobin 13.5 g/dL (14.0-18.0); Lymphocytes 16 % (21-51); MDiff Complete? YES; Mean Corpuscular HGB CONC 32.7 g/dL (32.0-36.0); Mean Corpuscular Hemoglobin 30.9 pg (27.0-31.0); Mean Corpuscular Volume 94.3 fL (78.0-98.0); Mean Platelet Volume 7.7 fL (7.4-10.4); Monocytes 7 % (0-10); Neutrophil 41 % (42-75); Platelet Count 195 thou/uL (130-400); Platelet Morphology Comment Appears Adequate; RBC Distribution Width 12.9 % (11.5-14.5); Red Blood Cell (RBC) Count 4.37 mill/uL (4.70-6.10); White Blood Cell (WBC) Count 13.3 thou/uL (4.8-10.8)
[2020-06-18] MEDS: Ascorbic Acid 500 mg Chewable Tablet PO SCH (07:46)
[2020-06-18] MEDS: OXcarbazepine 150 MG TAB PO SCH ×2 (07:46→20:15)
[2020-06-18] MEDS: Dexamethasone 4 mg/ml Vial SLOW IVP SCH (07:47)
[2020-06-18] MEDS: Lisinopril 5 MG TAB PO SCH (07:47)
[2020-06-18] MEDS: Folic Acid/Vit B Comp W-C PO SCH (07:47)
[2020-06-18] MEDS: Gabapentin 100 MG CAP PO SCH ×4 (07:47→20:15)
[2020-06-18] MEDS: Aspirin 81 mg Enteric Coated Tablet PO SCH (07:47)
[2020-06-18] MEDS: Apixaban 5 MG TAB PO SCH ×2 (07:47→20:14)
[2020-06-18] MEDS: Famotidine 20 MG TAB PO SCH ×2 (07:47→20:14)
[2020-06-18] MEDS: Acetaminophen 325 MG TAB PO PRN (08:03)
--- NOTE | 2020-06-18 11:09 | PDOC.HOSPP ---
- Subjective Encounter Date: 06/18/20 Encounter Time: 11:07 Subjective: Mr. Fenton was seen today in follow-up of COVID infection with encephalopathy. He is about the same today as yesterday. He is breathing fine, but still confused. He ia wake and alert, but disoriented. - Objective Vital Signs & Weight: Vital Signs (12 hours) Temp Pulse Resp BP BP Pulse Ox 06/18/20 09:47 101.3 F H 06/18/20 08:30 99 06/18/20 08:00 102.5 F H 72 18 132/60 98 06/18/20 03:00 99.4 F 81 20 128/59 L 97 06/17/20 23:32 99.1 F Weight Admit Weight 219 lb Weight 208 lb 11.2 oz I&O: 06/17/20 06/18/20 06/19/20 06:59 06:59 06:59 Intake Total 530 840 Output Total 1330 Balance 530 -490 Result Diagrams: 06/18/20 04:29 06/18/20 04:29 Hospitalist ROS - Medication Medications: Active Medications Generic Name Dose Route Start Last Admin Trade Name Freq PRN Reason Stop Dose Admin Acetaminophen 650 mg 06/14/20 20:25 06/18/20 08:03 Acetaminophen 325 Mg Tab PO 650 mg Q4H PRN Administration Headache/Fever/Mild Pain (1-3) Apixaban 5 mg 06/14/20 21:00 06/18/20 07:47 Apixaban 5 Mg Tab PO 5 mg BID RADHA Administration Ascorbic Acid 1,000 mg 06/16/20 09:00 06/18/20 07:46 Ascorbic Acid 500 Mg Chewable Tablet PO 1,000 mg DAILY RADHA Administration Aspirin 81 mg 06/18/20 09:00 06/18/20 07:47 Aspirin 81 Mg Enteric Coated Tablet PO 81 mg DAILY RADHA Administration Atorvastatin Calcium 40 mg 06/14/20 21:00 06/17/20 19:42 Atorvastatin Calcium 40 Mg Tab PO 40 mg HS RADHA Administration Dexamethasone 6 mg 06/16/20 09:00 06/18/20 07:47 Dexamethasone 4 Mg/Ml Vial SLOW IVP 6 mg DAILY RADHA Administration Famotidine 20 mg 06/14/20 21:00 06/18/20 07:47 Famotidine 20 Mg Tab PO 20 mg BID RADHA Administration Gabapentin 100 mg 06/18/20 09:00 06/18/20 08:29 Gabapentin 100 Mg Cap PO Not Given TID RADHA Lisinopril 5 mg 06/15/20 09:00 06/18/20 07:47 Lisinopril 5 Mg Tab PO 5 mg DAILY RADHA Administration Metoprolol Succinate 50 mg 06/15/20 09:00 06/18/20 07:46 Metoprolol Succinate Xl 50 Mg Tab PO 50 mg DAILY RADHA Administration Oxcarbazepine 150 mg 06/14/20 21:00 06/18/20 07:46 Oxcarbazepine 150 Mg Tab PO 150 mg BID RADHA Administration Sodium Chloride 10 ml 06/14/20 19:15 06/18/20 07:47 Flush - Normal Saline 10 Ml Syringe IVF 10 ml PRN PRN Administration Saline Flush Vitamin B Complex/Vit C/Folic Acid 1 tab 06/16/20 09:00 06/18/20 07:47 Folic Acid/Vit B Comp W-C PO 1 tab DAILY RADHA Administration - Exam General Appearance: NAD, awake alert Eye: PERRL, anicteric sclera Heart: RRR, no murmur, no gallops, no rubs, normal peripheral pulses Respiratory: CTAB, no wheezes, no rales, no ronchi, normal chest expansion, no tachypnea, normal percussion Gastrointestinal: soft, non-tender, non-distended, normal bowel sounds, no p alpable masses, no hepatomegaly Extremities: no cyanosis, no clubbing, no edema Psychiatric: not oriented Hosp A/P (1) Metabolic encephalopathy Code(s): G93.41 - METABOLIC ENCEPHALOPATHY Status: Acute (2) COVID-19 virus infection Code(s): U07.1 - COVID-19 Status: Acute (3) Fever Code(s): R50.9 - FEVER, UNSPECIFIED Status: Acute (4) Nonischemic cardiomyopathy Code(s): I42.8 - OTHER CARDIOMYOPATHIES Status: Chronic (5) Hyperlipidemia Code(s): E78.5 - HYPERLIPIDEMIA, UNSPECIFIED Status: Chronic - Plan * Metabolic encephalopathy due to COVID infection as well as Medications ( Neurontin and Oxcarbezapine) * He received Convalescent Serum, and is currently on Decadron * Continue to monitor inflammatory markers * Continue to monitor clinically and re-orientate * He is already on full anticoagulation with Eliquis * Will reduce the dose further of Neurontin. Continue Oxcarbezipine at half dose * Chronic systolic heart failure- compensated * Dyslipdemia- stable
--- NOTE | 2020-06-18 14:25 | PDOC.BPN ---
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 Will allow for recovery from Covid and make arrangements for outpatient procedure after discharge. Leads: Capture thresholds not checked. Impedance/sensing adequate. No sustained atrial or ventricular tachy arrhythmias. No recent ICD therapies Device will continue to do audible alert (likely around 10AM) to indicate MACHINE DESIGNER unless reprogrammed in person by [employer]. Given his + covid status reprogramming could be postponed until office appt. Plan outpt ICD gen change after recovery from COVID. ICd likly still have sufficient battery life for months. WIll arrange outpt follow up.
[2020-06-18] MEDS: Atorvastatin Calcium 40 MG TAB PO SCH (20:14)
[2020-06-19] MEDS: Ascorbic Acid 500 mg Chewable Tablet PO SCH (08:27)
[2020-06-19] MEDS: Folic Acid/Vit B Comp W-C PO SCH (08:27)
[2020-06-19] MEDS: OXcarbazepine 150 MG TAB PO SCH ×2 (08:27→21:57)
[2020-06-19] MEDS: Gabapentin 100 MG CAP PO SCH ×3 (08:27→21:58)
[2020-06-19] MEDS: Dexamethasone 4 mg/ml Vial SLOW IVP SCH (08:27)
[2020-06-19] MEDS: Aspirin 81 mg Enteric Coated Tablet PO SCH (08:28)
[2020-06-19] MEDS: Lisinopril 5 MG TAB PO SCH (08:28)
[2020-06-19] MEDS: Apixaban 5 MG TAB PO SCH ×2 (08:28→21:58)
[2020-06-19] MEDS: Famotidine 20 MG TAB PO SCH ×2 (08:28→21:58)
--- NOTE | 2020-06-19 11:01 | PDOC.HOSPP ---
- Subjective Encounter Date: 06/19/20 Encounter Time: 10:30 Subjective: awake, responds to verbal stimuli once in a while not in distress is eating well per staff - Objective Vital Signs & Weight: Vital Signs (12 hours) Temp Pulse Resp BP Pulse Ox 06/19/20 07:20 96.3 F L 80 18 128/69 96 06/19/20 03:57 99.4 F 82 20 143/64 H 95 06/19/20 01:24 99.6 F 80 20 139/69 96 Weight Admit Weight 219 lb Weight 208 lb 11.2 oz I&O: 06/18/20 06/19/20 06/20/20 06:59 06:59 06:59 Intake Total 840 1200 Output Total 1330 Balance -490 1200 Result Diagrams: 06/18/20 04:29 06/18/20 04:29 Additional Labs: Accuchecks 06/18/20 20:20 POC Glucose 384 H Hospitalist ROS - Medication Medications: Active Medications Generic Name Dose Route Start Last Admin Trade Name Freq PRN Reason Stop Dose Admin Acetaminophen 650 mg 06/14/20 20:25 06/18/20 08:03 Acetaminophen 325 Mg Tab PO 650 mg Q4H PRN Administration Headache/Fever/Mild Pain (1-3) Apixaban 5 mg 06/14/20 21:00 06/19/20 08:28 Apixaban 5 Mg Tab PO 5 mg BID RADHA Administration Ascorbic Acid 1,000 mg 06/16/20 09:00 06/19/20 08:27 Ascorbic Acid 500 Mg Chewable Tablet PO 1,000 mg DAILY RADHA Administration Aspirin 81 mg 06/18/20 09:00 06/19/20 08:28 Aspirin 81 Mg Enteric Coated Tablet PO 81 mg DAILY RADHA Administration Atorvastatin Calcium 40 mg 06/14/20 21:00 06/18/20 20:14 Atorvastatin Calcium 40 Mg Tab PO 40 mg HS RADHA Administration Dexamethasone 6 mg 06/16/20 09:00 06/19/20 08:27 Dexamethasone 4 Mg/Ml Vial SLOW IVP 6 mg DAILY RADHA Administration Famotidine 20 mg 06/14/20 21:00 06/19/20 08:28 Famotidine 20 Mg Tab PO 20 mg BID RADHA Administration Gabapentin 100 mg 06/18/20 09:00 06/19/20 08:27 Gabapentin 100 Mg Cap PO 100 mg TID RADHA Administration Lisinopril 5 mg 06/15/20 09:00 06/19/20 08:28 Lisinopril 5 Mg Tab PO 5 mg DAILY RADHA Administration Metoprolol Succinate 50 mg 06/15/20 09:00 06/19/20 08:27 Metoprolol Succinate Xl 50 Mg Tab PO 50 mg DAILY RADHA Administration Oxcarbazepine 150 mg 06/14/20 21:00 06/19/20 08:27 Oxcarbazepine 150 Mg Tab PO 150 mg BID RADHA Administration Sodium Chloride 10 ml 06/14/20 19:15 06/19/20 08:27 Flush - Normal Saline 10 Ml Syringe IVF 10 ml PRN PRN Administration Saline Flush Vitamin B Complex/Vit C/Folic Acid 1 tab 06/16/20 09:00 06/19/20 08:27 Folic Acid/Vit B Comp W-C PO 1 tab DAILY RADHA Administration - Exam General Appearance: awake alert Eye: PERRL, anicteric sclera ENT: no oropharyngeal lesions, moist mucosa Neck: supple, no JVD Heart: RRR, no murmur Respiratory: no wheezes, no rales Gastrointestinal: soft, non-tender, non-distended, normal bowel sounds, no guarding, no rigidity Extremities: no cyanosis, no edema Neurological: cranial nerve grossly intact, no focal deficits Hosp A/P (1) COVID-19 virus infection Code(s): U07.1 - COVID-19 Status: Acute (2) Metabolic encephalopathy Code(s): G93.41 - METABOLIC ENCEPHALOPATHY Status: Acute (3) Hyperlipidemia Code(s): E78.5 - HYPERLIPIDEMIA, UNSPECIFIED Status: Chronic Qualifiers: Hyperlipidemia type: unspecified Qualified Code(s): E78.5 - Hyperlipidemia, unspecified (4) Nonischemic cardiomyopathy Code(s): I42.8 - OTHER CARDIOMYOPATHIES Status: Chronic - Plan is on decadron encourage po intake unclear reason for eliquis, ?ef of 30% (could not obtain info from [employer] records, pt is not oriented) continue asp, lipitor, toprol, lisinopril, neurontin and trileptal to mobilize as tolerated aicd battery change in 3 months hemostable
[2020-06-19] MEDS: Atorvastatin Calcium 40 MG TAB PO SCH (21:58)
[2020-06-20] MEDS: Acetaminophen 325 MG TAB PO PRN (05:15)
[2020-06-20 05:18] LABS: Hemoglobin 13.3 g/dL (14.0-18.0); Platelet Count 234 thou/uL (130-400)
[2020-06-20] MEDS: OXcarbazepine 150 MG TAB PO SCH ×2 (10:33→21:36)
[2020-06-20] MEDS: Ascorbic Acid 500 mg Chewable Tablet PO SCH (10:34)
[2020-06-20] MEDS: Aspirin 81 mg Enteric Coated Tablet PO SCH (10:35)
[2020-06-20] MEDS: Folic Acid/Vit B Comp W-C PO SCH (10:35)
[2020-06-20] MEDS: Lisinopril 5 MG TAB PO SCH (10:35)
[2020-06-20] MEDS: Gabapentin 100 MG CAP PO SCH ×3 (10:35→21:36)
[2020-06-20] MEDS: Famotidine 20 MG TAB PO SCH ×2 (10:35→21:36)
[2020-06-20] MEDS: Apixaban 5 MG TAB PO SCH ×2 (10:35→21:37)
[2020-06-20] MEDS: Dexamethasone 4 mg/ml Vial SLOW IVP SCH (10:36)
--- NOTE | 2020-06-20 10:39 | RAD ---
PORTABLE CHEST: DATE: 06/20/2020. PROVIDED CLINICAL HISTORY: COVID pneumonia. FINDINGS: Comparison 06/17/2020. Cardiac and mediastinal silhouette are unchanged in appearance. Left subclav lianna cardiac pacing device is again seen in similar position. There is left basilar patchy parenchyma l opacity. No pleural fluid or pneumothorax apparent. IMPRESSION: Development of left basilar parenchymal opacity that may reflect subsegmental atelectasis or pneumoni a. POS: DILAN
--- NOTE | 2020-06-20 11:25 | PDOC.HOSPP ---
- Subjective Encounter Date: 06/20/20 Encounter Time: 10:30 Subjective: awake, not in distress, is watching tv no trouble breathing - Objective Vital Signs & Weight: Vital Signs (12 hours) Temp Pulse Resp BP BP Pulse Ox 06/20/20 09:00 97.8 F 78 18 150/67 H 95 06/20/20 04:00 100.4 F H 74 20 134/62 93 L 06/20/20 00:00 99.5 F 75 18 144/87 H 95 Weight Admit Weight 219 lb Weight 208 lb 11.2 oz I&O: 06/19/20 06/20/20 06/21/20 06:59 06:59 06:59 Intake Total 1200 2097 Balance 1200 2097 Result Diagrams: 06/20/20 05:00 06/20/20 05:00 Hospitalist ROS - Medication Medications: Active Medications Generic Name Dose Route Start Last Admin Trade Name Freq PRN Reason Stop Dose Admin Acetaminophen 650 mg 06/14/20 20:25 06/20/20 05:15 Acetaminophen 325 Mg Tab PO 650 mg Q4H PRN Administration Headache/Fever/Mild Pain (1-3) Apixaban 5 mg 06/14/20 21:00 06/20/20 10:35 Apixaban 5 Mg Tab PO 5 mg BID RADHA Administration Ascorbic Acid 1,000 mg 06/16/20 09:00 06/20/20 10:34 Ascorbic Acid 500 Mg Chewable Tablet PO 1,000 mg DAILY RADHA Administration Aspirin 81 mg 06/18/20 09:00 06/20/20 10:35 Aspirin 81 Mg Enteric Coated Tablet PO 81 mg DAILY RADHA Administration Atorvastatin Calcium 40 mg 06/14/20 21:00 06/19/20 21:58 Atorvastatin Calcium 40 Mg Tab PO 40 mg HS RADHA Administration Dexamethasone 6 mg 06/16/20 09:00 06/20/20 10:36 Dexamethasone 4 Mg/Ml Vial SLOW IVP 6 mg DAILY RADHA Administration Famotidine 20 mg 06/14/20 21:00 06/20/20 10:35 Famotidine 20 Mg Tab PO 20 mg BID RADHA Administration Gabapentin 100 mg 06/18/20 09:00 06/20/20 10:35 Gabapentin 100 Mg Cap PO 100 mg TID RADHA Administration Lisinopril 5 mg 06/15/20 09:00 06/20/20 10:35 Lisinopril 5 Mg Tab PO 5 mg DAILY RADHA Administration Metoprolol Succinate 50 mg 06/15/20 09:00 06/20/20 10:36 Metoprolol Succinate Xl 50 Mg Tab PO 50 mg DAILY RADHA Administration Oxcarbazepine 150 mg 06/14/20 21:00 06/20/20 10:33 Oxcarbazepine 150 Mg Tab PO 150 mg BID RADHA Administration Sodium Chloride 10 ml 06/14/20 19:15 06/19/20 22:00 Flush - Normal Saline 10 Ml Syringe IVF 10 ml PRN PRN Administration Saline Flush Vitamin B Complex/Vit C/Folic Acid 1 tab 06/16/20 09:00 06/20/20 10:35 Folic Acid/Vit B Comp W-C PO 1 tab DAILY RADHA Administration - Exam General Appearance: awake alert Eye: PERRL, anicteric sclera ENT: no oropharyngeal lesions, moist mucosa Neck: supple, no JVD Heart: RRR, no gallops Respiratory: no wheezes, no rales, rhonchi Gastrointestinal: soft, non-tender, non-distended, normal bowel sounds Extremities: no cyanosis, 1+ LE edema Neurological: cranial nerve grossly intact, no focal deficits Hosp A/P (1) COVID-19 virus infection Code(s): U07.1 - COVID-19 Status: Acute (2) Metabolic encephalopathy Code(s): G93.41 - METABOLIC ENCEPHALOPATHY Status: Acute (3) Hyperlipidemia Code(s): E78.5 - HYPERLIPIDEMIA, UNSPECIFIED Status: Chronic Qualifiers: Hyperlipidemia type: unspecified Qualified Code(s): E78.5 - Hyperlipidemia, unspecified (4) Nonischemic cardiomyopathy Code(s): I42.8 - OTHER CARDIOMYOPATHIES Status: Chronic (5) Dementia Code(s): F03.90 - UNSPECIFIED DEMENTIA WITHOUT BEHAVIORAL DISTURBANCE Status: Acute Qualifiers: Dementia type: unspecified type - Plan is on decadron, tmax of 100 last 24hrs, repeat cxr shows developing infiltrate encourage po intake unclear reason for eliquis, ?ef of 30% (could not obtain info from [facility] records, pt is not oriented and poor historian) continue asp, lipitor, toprol, lisinopril, neurontin and trileptal to mobilize as tolerated with PT aicd battery change in 3 months hemostable
[2020-06-20] MEDS: Atorvastatin Calcium 40 MG TAB PO SCH (21:37)
[2020-06-21] MEDS: Acetaminophen 325 MG TAB PO PRN (02:02)
[2020-06-21] MEDS: Ascorbic Acid 500 mg Chewable Tablet PO SCH (08:59)
[2020-06-21] MEDS: Folic Acid/Vit B Comp W-C PO SCH (08:59)
[2020-06-21] MEDS: Apixaban 5 MG TAB PO SCH ×2 (08:59→20:42)
[2020-06-21] MEDS: Aspirin 81 mg Enteric Coated Tablet PO SCH (08:59)
[2020-06-21] MEDS: Dexamethasone 4 mg/ml Vial SLOW IVP SCH (08:59)
[2020-06-21] MEDS: OXcarbazepine 150 MG TAB PO SCH ×2 (08:59→20:42)
[2020-06-21] MEDS: Famotidine 20 MG TAB PO SCH ×2 (08:59→20:42)
[2020-06-21] MEDS: Gabapentin 100 MG CAP PO SCH ×3 (08:59→20:41)
[2020-06-21] MEDS: Lisinopril 5 MG TAB PO SCH (08:59)
--- NOTE | 2020-06-21 13:40 | PDOC.HOSPP ---
- Subjective Encounter Date: 06/21/20 Encounter Time: 10:40 Subjective: is not oriented watching tv not in distress eating well per staff has not ambulated - Objective Vital Signs & Weight: Vital Signs (12 hours) Temp Pulse Resp BP Pulse Ox 06/21/20 11:33 99.1 F 79 22 H 124/57 L 96 06/21/20 09:07 98.9 F 71 24 H 122/66 93 L 06/21/20 06:30 98.6 F 74 20 147/70 H 98 06/21/20 01:47 100.5 F H 80 20 149/70 H 98 Weight Admit Weight 219 lb Weight 208 lb 11.2 oz I&O: 06/20/20 06/21/20 06/22/20 06:59 06:59 06:59 Intake Total 7 951.5 Output Total 1 Balance 7 950.5 Result Diagrams: 06/20/20 05:00 06/20/20 05:00 Hospitalist ROS - Medication Medications: Active Medications Generic Name Dose Route Start Last Admin Trade Name Freq PRN Reason Stop Dose Admin Acetaminophen 650 mg 06/14/20 20:25 06/21/20 02:02 Acetaminophen 325 Mg Tab PO 650 mg Q4H PRN Administration Headache/Fever/Mild Pain (1-3) Apixaban 5 mg 06/14/20 21:00 06/21/20 08:59 Apixaban 5 Mg Tab PO 5 mg BID RADHA Administration Ascorbic Acid 1,000 mg 06/16/20 09:00 06/21/20 08:59 Ascorbic Acid 500 Mg Chewable Tablet PO 1,000 mg DAILY RADHA Administration Aspirin 81 mg 06/18/20 09:00 06/21/20 08:59 Aspirin 81 Mg Enteric Coated Tablet PO 81 mg DAILY RADHA Administration Atorvastatin Calcium 40 mg 06/14/20 21:00 06/20/20 21:37 Atorvastatin Calcium 40 Mg Tab PO 40 mg HS RADHA Administration Dexamethasone 6 mg 06/16/20 09:00 06/21/20 08:59 Dexamethasone 4 Mg/Ml Vial SLOW IVP 6 mg DAILY RADHA Administration Famotidine 20 mg 06/14/20 21:00 06/21/20 08:59 Famotidine 20 Mg Tab PO 20 mg BID RADHA Administration Gabapentin 100 mg 06/18/20 09:00 06/21/20 08:59 Gabapentin 100 Mg Cap PO 100 mg TID RADHA Administration Lisinopril 5 mg 06/15/20 09:00 06/21/20 08:59 Lisinopril 5 Mg Tab PO 5 mg DAILY RADHA Administration Metoprolol Succinate 50 mg 06/15/20 09:00 06/21/20 08:59 Metoprolol Succinate Xl 50 Mg Tab PO 50 mg DAILY RADHA Administration Oxcarbazepine 150 mg 06/14/20 21:00 06/21/20 08:59 Oxcarbazepine 150 Mg Tab PO 150 mg BID RADHA Administration Sodium Chloride 10 ml 06/14/20 19:15 06/21/20 09:00 Flush - Normal Saline 10 Ml Syringe IVF 10 ml PRN PRN Administration Saline Flush Vitamin B Complex/Vit C/Folic Acid 1 tab 06/16/20 09:00 06/21/20 08:59 Folic Acid/Vit B Comp W-C PO 1 tab DAILY RADHA Administration - Exam General Appearance: awake alert Eye: PERRL, anicteric sclera ENT: no oropharyngeal lesions, moist mucosa Neck: supple, no JVD Heart: RRR, no murmur Respiratory: no wheezes, no rales, rhonchi Gastrointestinal: soft, non-tender, non-distended, normal bowel sounds Extremities: no cyanosis, no edema Neurological: cranial nerve grossly intact, no focal deficits Hosp A/P (1) COVID-19 virus infection Code(s): U07.1 - COVID-19 Status: Acute (2) Metabolic encephalopathy Code(s): G93.41 - METABOLIC ENCEPHALOPATHY Status: Acute (3) Hyperlipidemia Code(s): E78.5 - HYPERLIPIDEMIA, UNSPECIFIED Status: Chronic Qualifiers: Hyperlipidemia type: unspecified Qualified Code(s): E78.5 - Hyperlipidemia, unspecified (4) Nonischemic cardiomyopathy Code(s): I42.8 - OTHER CARDIOMYOPATHIES Status: Chronic (5) Dementia Code(s): F03.90 - UNSPECIFIED DEMENTIA WITHOUT BEHAVIORAL DISTURBANCE Status: Chronic Qualifiers: Dementia type: unspecified type - Plan is on decadron, tmax of 99 last 24hrs, repeat cxr shows developing infiltrate encourage po intake unclear reason for eliquis, ?ef of 30% (could not obtain info from [facility] records, pt is not oriented and poor historian) continue asp, lipitor, toprol, lisinopril, neurontin and trileptal to mobilize as tolerated with PT aicd battery change in 3 months hemostable will likely need placement
[2020-06-21] MEDS: Atorvastatin Calcium 40 MG TAB PO SCH (20:42)
[2020-06-22 05:42] LABS: #Eosinphils 0.1 thou/uL (0.0-0.7); #Lymphocytes 1.5 thou/uL (1.20-3.40); #Neutrophils 8.2 thou/uL (1.40-6.50); %Basophils 0.1 % (0.0-1.0); %Eosinophils 0.5 % (0.0-10.0); %Lymphocytes 14.1 % (21.0-51.0); %Monocytes 9.4 % (0.0-10.0); %Neutrophils 75.9 % (42.0-75.0); Hemoglobin 13.3 g/dL (14.0-18.0); Mean Corpuscular HGB CONC 32.2 g/dL (32.0-36.0); Mean Corpuscular Hemoglobin 31.5 pg (27.0-31.0); Mean Corpuscular Volume 97.9 fL (78.0-98.0); Mean Platelet Volume 7.9 fL (7.4-10.4); Platelet Count 269 thou/uL (130-400); RBC Distribution Width 13.2 % (11.5-14.5); Red Blood Cell (RBC) Count 4.22 mill/uL (4.70-6.10); White Blood Cell (WBC) Count 10.8 thou/uL (4.8-10.8)
[2020-06-22 05:58] LABS: Anion Gap 13 mmol/L (10-20); BUN (Urea Nitrogen) 43 mg/dL (8.4-25.7); Calc. Creatinine Clearance 69 mL/min (70-130); Calcium 9.6 mg/dL (7.8-10.44); Carbon Dioxide 30 mmol/L (23-31); Chloride 101 mmol/L (98-107); Estimated GFR-MDRD 62; Glucose 317 mg/dL (83-110); Potassium 3.9 mmol/L (3.5-5.1); Sodium 140 mmol/L (136-145)
[2020-06-22] MEDS: Ascorbic Acid 500 mg Chewable Tablet PO SCH (07:55)
[2020-06-22] MEDS: Famotidine 20 MG TAB PO SCH (07:55)
[2020-06-22] MEDS: Folic Acid/Vit B Comp W-C PO SCH (07:55)
[2020-06-22] MEDS: OXcarbazepine 150 MG TAB PO SCH (07:56)
[2020-06-22] MEDS: Gabapentin 100 MG CAP PO SCH ×2 (07:56→16:14)
[2020-06-22] MEDS: Lisinopril 5 MG TAB PO SCH (07:56)
[2020-06-22] MEDS: Aspirin 81 mg Enteric Coated Tablet PO SCH (07:56)
[2020-06-22] MEDS: Apixaban 5 MG TAB PO SCH (07:57)
[2020-06-22] MEDS: Dexamethasone 4 mg/ml Vial SLOW IVP SCH (07:57)
--- NOTE | 2020-06-22 13:25 | PDOC.HOSPP ---
- Subjective Encounter Date: 06/22/20 Encounter Time: 09:00 Subjective: awake, responds well to verbal stimuli not fully oriented is eating well - Objective Vital Signs & Weight: Vital Signs (12 hours) Temp Pulse Resp BP BP Pulse Ox 06/22/20 11:10 97.4 F L 81 20 126/67 93 L 06/22/20 08:06 98.6 F 75 20 172/84 H 96 06/22/20 03:27 97.9 F 76 22 H 155/76 H 96 Weight Admit Weight 219 lb Weight 208 lb 11.2 oz I&O: 06/21/20 06/22/20 06/23/20 06:59 06:59 06:59 Intake Total 951.5 1697 Output Total 1 Balance 950.5 1697 Result Diagrams: 06/22/20 04:44 06/22/20 04:44 Hospitalist ROS - Medication Medications: Active Medications Generic Name Dose Route Start Last Admin Trade Name Freq PRN Reason Stop Dose Admin Acetaminophen 650 mg 06/14/20 20:25 06/21/20 02:02 Acetaminophen 325 Mg Tab PO 650 mg Q4H PRN Administration Headache/Fever/Mild Pain (1-3) Apixaban 5 mg 06/14/20 21:00 06/22/20 07:57 Apixaban 5 Mg Tab PO 5 mg BID RADHA Administration Ascorbic Acid 1,000 mg 06/16/20 09:00 06/22/20 07:55 Ascorbic Acid 500 Mg Chewable Tablet PO 1,000 mg DAILY RADHA Administration Aspirin 81 mg 06/18/20 09:00 06/22/20 07:56 Aspirin 81 Mg Enteric Coated Tablet PO 81 mg DAILY RADHA Administration Atorvastatin Calcium 40 mg 06/14/20 21:00 06/21/20 20:42 Atorvastatin Calcium 40 Mg Tab PO 40 mg HS RADHA Administration Dexamethasone 6 mg 06/16/20 09:00 06/22/20 07:57 Dexamethasone 4 Mg/Ml Vial SLOW IVP 6 mg DAILY RADHA Administration Famotidine 20 mg 06/14/20 21:00 06/22/20 07:55 Famotidine 20 Mg Tab PO 20 mg BID RADHA Administration Gabapentin 100 mg 06/18/20 09:00 06/22/20 07:56 Gabapentin 100 Mg Cap PO 100 mg TID RADHA Administration Lisinopril 5 mg 06/15/20 09:00 06/22/20 07:56 Lisinopril 5 Mg Tab PO 5 mg DAILY RADHA Administration Metoprolol Succinate 50 mg 06/15/20 09:00 06/22/20 07:55 Metoprolol Succinate Xl 50 Mg Tab PO 50 mg DAILY RADHA Administration Oxcarbazepine 150 mg 06/14/20 21:00 06/22/20 07:56 Oxcarbazepine 150 Mg Tab PO 150 mg BID RADHA Administration Sodium Chloride 10 ml 06/14/20 19:15 06/22/20 07:57 Flush - Normal Saline 10 Ml Syringe IVF 10 ml PRN PRN Administration Saline Flush Vitamin B Complex/Vit C/Folic Acid 1 tab 06/16/20 09:00 06/22/20 07:55 Folic Acid/Vit B Comp W-C PO 1 tab DAILY RADHA Administration - Exam General Appearance: awake alert Eye: PERRL, anicteric sclera ENT: no oropharyngeal lesions, moist mucosa Neck: supple, no JVD Heart: RRR, no murmur Respiratory: no wheezes, no rales Gastrointestinal: soft, non-tender, non-distended, normal bowel sounds Extremities: no cyanosis, 1+ LE edema Neurological: cranial nerve grossly intact, no focal deficits Hosp A/P (1) COVID-19 virus infection Code(s): U07.1 - COVID-19 Status: Acute (2) Metabolic encephalopathy Code(s): G93.41 - METABOLIC ENCEPHALOPATHY Status: Acute (3) Hyperlipidemia Code(s): E78.5 - HYPERLIPIDEMIA, UNSPECIFIED Status: Chronic Qualifiers: Hyperlipidemia type: unspecified Qualified Code(s): E78.5 - Hyperlipidemia, unspecified (4) Nonischemic cardiomyopathy Code(s): I42.8 - OTHER CARDIOMYOPATHIES Status: Chronic (5) Dementia Code(s): F03.90 - UNSPECIFIED DEMENTIA WITHOUT BEHAVIORAL DISTURBANCE Status: Chronic Qualifiers: Dementia type: unspecified type - Plan is on decadron, tmax of 99 last 24hrs, repeat cxr shows developing infiltrate encourage po intake has h/o paroxysmal afib on eliquis, prior ef of 30% continue asp, lipitor, toprol, lisinopril, neurontin and trileptal to mobilize as tolerated with PT aicd battery change in 3 months hemostable will likely need placement, d/w and son over phone may dc anytime placement is ready
[2020-06-22 14:32] VITALS: BMI 29.1
[2020-06-22 16:38] VITALS: BP 144/77; TEMP 96.7
--- NOTE | 2020-06-22 17:07 | DIS ---
DATE OF ADMISSION: 06/15/2020 DATE OF DISCHARGE: 06/22/2020 DISCHARGE DISPOSITION: [facility]. PRIMARY DISCHARGE DIAGNOSES: 1. COVID-19 pneumonia. 2. Acute metabolic encephalopathy, multifactorial, including due to medications and COVID-19 infection. SECONDARY DISCHARGE DIAGNOSES: 1. History of nonischemic cardiomyopathy. 2. Dyslipidemia. 3. Likely underlying dementia. PROCEDURES DONE DURING HOSPITALIZATION: CT brain done showed no acute intracranial process. Chest x-ray done on admission did not reveal any abnormality. Chest x-ray done on 06/20/2020, showed developing left basilar parenchymal opacity suggestive of pneumonia. Carotid Doppler ultrasound done showed no evidence of hemodynamically significant stenosis of either ICA. Blood cultures x2, no growth. Urine culture, no growth. H and H 13 and 41, platelet count 269, MCV is 97. COVID-19 PCR was positive on 06/14/2020. Ferritin 2706 on the day of discharge. BUN 43, creatinine 1.1. CRP 21 on 06/20/2020. Total cholesterol 170, triglycerides 161, LDL 104, HDL 34. DISCHARGE MEDICATIONS: 1. Trileptal 150 mg twice daily. 2. Gabapentin 100 mg p.o. three times daily. 3. Toprol-XL 50 mg p.o. at bedtime. 4. Multivitamin one tablet once daily. 5. Lisinopril 5 mg p.o. at bedtime. 6. Lasix 20 mg p.o. daily. 7. Eliquis 5 mg p.o. twice daily. 8. Atorvastatin 80 mg p.o. at bedtime. ALLERGIES: NO KNOWN DRUG ALLERGIES. DISCHARGE PLAN: The patient will continue to follow up with Dr. Hernandez at [facility] and later will follow up with Dr. Whitaker, his primary care physician in 1 week. BRIEF COURSE DURING HOSPITALIZATION: The patient initially was brought to emergency room as he was not himself and there was suspicion about his escalating doses of medication that was given for suspected trigeminal neuralgia. His Neurontin dose was drastically reduced to 100 mg three times daily and the patient has had consultation with Dr. Brooks as well for Neurology. He has had addition of Trileptal twice daily. His COVID-19 PCR came back positive. The patient received convalescent plasma on 06/15/2020. He was also placed on steroids. He has had mild glucose intolerance with steroids. The patient's confusion is slowly resolving, but it is still present. He is able to hold some conversation now. He follows verbal stimuli. Mr. Anton Fenton is not oriented fully. He is needing moderate to max assist to mobilize. In view of this, he is being discharged to swing bed to further recuperate and ambulate prior to going home. He apparently was ambulating by himself at home per son and . A total of 35 minutes was spent on discharge plan. Mr. Anton Fenton is hemodynamically stable and will be shortly discharged home. Please note, I have seen and examined the patient on the day of discharge. Job ID: [id number]
--- NOTE | 2020-06-25 04:07 | PQF ---
Dear : Mandy Singh Date 06/25/20 Please exercise your independent, professional judgment in responding to the clarification form. Clinical indicators are provided on the bottom of this form for your review Can you please further clarify the conflicting diagnosis? Please check appropriate box(es): Conflicting documentation was noted in the Medical Record; please clarify if patient is being treated/monitored for: [ ] Acute on chronic Systolic CHF [ ] Chronic CHF systolic-diastolic mixed, decompensated [ x ] Other diagnosis please specify_h/o chronic chf with systolic and diastolic dysfunction with no decompensation [ ] Unable to determine Physician Signature: Date/Time: For continuity of documentation, please document condition throughout progress notes and discharge summary. Thank You. To be completed by CDI/Coding staff for physician review: Present Clinical Indicators - Signs / Symptoms / Labs Results and Location in Medical Record [ x ] EF of 30-35% H and P pg.2 [ x ] Acute on chronic systolic CHF H and P pg.3 [ x ] Appears to be slightly volume overload in my opinion H and P pg.3 [ x ] BNP 70.8, 89.6 Laboratory [ x ] No evidence of acute cardiopulmonary process Chest X ray 06/14 [ x ] CHF systolic-diastolic mixed, currently decompensated PN 06/16 pg.1 Present Risk Factors Results and Location in Medical Record [ x ] Third degree AV Block H and P pg.1 [ x ] Non ischemic cardiomyopathy H and P pg.1 [ x ] 80 years old H and P pg.1 [ x ] HLD H and P pg.2 [ x ] NSVT PN 06/16 pg.1 [ x ] COVID 19 infection Present Treatments Results and Location in Medical Record [ x ] Chest X ray 06/14 [ x ] Cardiology Consult DR. Ramirez 06/16 [ x ] Dexamethasone 6mg IV MAR [ x ] IV Lasix H and P pg.3 CDS/Evs Manager Signature: Carl Armenta Phone #: ext [phone] Date 06/25/20 ALAYNA
== END 2020-06-22 17:43 | disposition swing bed (61) | DRG 177 ==
LOC: ERS 12:29 → 2SE 17:00 → 2SW 06-15 16:16 → OBSVTOIN 06-15 17:22
PROVIDERS: ADMIT Internal Medicine; ATTEND Internal Medicine
PROC: 8E0ZXY6 Isolation (ICD-10-PCS; principal; 2020-06-15)
PROC: XW13325 Transfusion of Convalescent Plasma (Nonautologous) into Peripheral Vein, Percutaneous Approach, New Technology Group 5 (ICD-10-PCS; 2020-06-15)
DX: U07.1 COVID-19 (principal); J12.89 Other viral pneumonia; G92 Toxic encephalopathy; I42.8 Other cardiomyopathies; I50.42 Chronic combined systolic (congestive) and diastolic (congestive) heart failure; I47.2 Ventricular tachycardia; E87.1 Hypo-osmolality and hyponatremia; E78.5 Hyperlipidemia, unspecified; F03.90 Unspecified dementia, unspecified severity, without behavioral disturbance, psychotic disturbance, mood disturbance, and anxiety; G50.0 Trigeminal neuralgia; T42.6X5A Adverse effect of other antiepileptic and sedative-hypnotic drugs, initial encounter; E78.00 Pure hypercholesterolemia, unspecified; I25.5 Ischemic cardiomyopathy; I48.0 Paroxysmal atrial fibrillation; Z95.810 Presence of automatic (implantable) cardiac defibrillator; Z79.01 Long term (current) use of anticoagulants; Z79.899 Other long term (current) drug therapy
CPT/HCPCS: 36415; 36416; 36430; 51701; 70450; 71045; 80048; 80053; 80061; 80306; 80307; 81003; 81015; 82565; 82728; 83735; 83880; 84484; 85014; 85018; 85025; 85049; 85379; 86140; 86850; 86900; 86901; 87040; 87086; 87635; 93005; 93880; 96374; 96376; G0378; J1100; J1940; P9017; U0003

== ENCOUNTER 2020-07-21 07:03 | Outpatient (CLI) | payer MEDICARE, OTHER ==
[2020-07-21 12:03] LABS: Hemoglobin 13.1 g/dL (14.0-18.0); Mean Corpuscular HGB CONC 32.8 G/DL (32.0-36.0); Mean Corpuscular Hemoglobin 30.8 PG (27.0-33.0); Mean Corpuscular Volume 93.9 fl (80.0-100.0); Mean Platelet Volume 8.8 fl (7.4-10.4); Platelet Count 214 10x3/uL (130-400); RBC Distribution Width 13.1 % (11.5-14.5); Red Blood Cell (RBC) Count 4.25 10x6/uL (4.40-5.80); White Blood Cell (WBC) Count 8.1 10x3/uL (4.5-11.0)
[2020-07-21 12:14] LABS: Anion Gap 13 mmol/L (10-20); BUN (Urea Nitrogen) 16 mg/dL (8.4-25.7); Calc. Creatinine Clearance 0 mL/min (70-130); Calcium 8.7 mg/dL (7.8-10.44); Carbon Dioxide 31 mmol/L (23-31); Chloride 93 mmol/L (98-107); Estimated GFR-MDRD 56; Glucose 161 mg/dL (83-110); Potassium 3.8 mmol/L (3.5-5.1); Sodium 133 mmol/L (136-145)
[2020-07-21 12:24] LABS: PTT 29.6 sec (22.0-33.0); Prothrombin Time 10.7 sec (9.5-12.1)
[2020-07-21 19:07] LABS: SARS-CoV-2 MS2 Positive; SARS-CoV-2 N Gene Positive; SARS-CoV-2 S Gene Positive; SARS-CoV-2 by NAA DETECTED (NotDetected); SARS-CoV-2 orf1ab Positive
== END 2020-07-21 07:04 | disposition home or self-care (01) ==
LOC: LABBT 07:03
PROVIDERS: ATTEND Internal Medicine Cardiovascular Disease
DX: U07.1 COVID-19 (principal); Z01.818 Encounter for other preprocedural examination; I25.5 Ischemic cardiomyopathy
CPT/HCPCS: 80048; 85027; 85610; 85730; U0003; 87635

== ENCOUNTER 2020-07-26 10:51 | Day surgery (SDC) | payer MEDICARE, OTHER ==
[2020-07-26] MEDS ORDERED: PHENYLEPHRINE-NS 100 MCG/ML 10 ML SYRINGE ONE (10:58)
[2020-07-26] MEDS ORDERED: Dexamethasone 20 MG/5 ML VIAL ONE (10:58)
[2020-07-26] MEDS ORDERED: Lidocaine 1% PF 5 ML VIAL ONE (10:58)
[2020-07-26] MEDS ORDERED: PROPOFOL 200 MG/20 ML VIAL ONE (10:58)
[2020-07-26] MEDS ORDERED: Iopamidol 370 76% 50 ML VIAL FS ONE (12:11)
[2020-07-26] MEDS ORDERED: CEFAZOLIN 1 GM VIAL ONE (14:25)
[2020-07-26] MEDS ORDERED: Gentamicin 80 MG/2 ML VIAL ONE (14:43)
[2020-07-26] MEDS ORDERED: Propofol 1,000 MG/100 ML VIAL IV ONE (14:43)
[2020-07-26] MEDS ORDERED: Fentanyl 100 MCG/2 ML VIAL ONE (15:04)
[2020-07-26] MEDS ORDERED: Midazolam HCl 2 mg/2 ml Vial ONE (15:35)
--- NOTE | 2020-07-26 17:10 | RAD ---
Portable frontal chest radiograph: 07/26/2020 COMPARISON: 06/20/2020 HISTORY: Evaluate chest following cardiac pacing device FINDINGS: There is a multilead transvenous AICD inserted via a left subclavian approach. No pneumotho rax is evident. Increased linear interstitial density noted in the perihilar regions in bilateral lung bases, left greater than right, not significantly changed when compared to the prior exam. IMPRESSION: No significant interval change. No pneumothorax noted.
== END 2020-07-26 20:04 | disposition home or self-care (01) ==
LOC: CCL 10:51
PROVIDERS: ATTEND Internal Medicine Cardiovascular Disease
PROC: 0JPT0PZ Removal of Cardiac Rhythm Related Device from Trunk Subcutaneous Tissue and Fascia, Open Approach (ICD-10-PCS; principal; 2020-07-26)
PROC: 0JH609Z Insertion of Cardiac Resynchronization Defibrillator Pulse Generator into Chest Subcutaneous Tissue and Fascia, Open Approach (ICD-10-PCS; 2020-07-26)
DX: Z45.02 Encounter for adjustment and management of automatic implantable cardiac defibrillator (principal); I50.22 Chronic systolic (congestive) heart failure; I42.8 Other cardiomyopathies; I48.19 Other persistent atrial fibrillation; I47.2 Ventricular tachycardia; I25.5 Ischemic cardiomyopathy; I44.2 Atrioventricular block, complete; I49.5 Sick sinus syndrome; I25.10 Atherosclerotic heart disease of native coronary artery without angina pectoris; E78.5 Hyperlipidemia, unspecified; Z86.19 Personal history of other infectious and parasitic diseases; Z79.01 Long term (current) use of anticoagulants; Z79.899 Other long term (current) drug therapy
CPT/HCPCS: 33264; 36005; 71045; 75820; 76942; 93005; 93010; 93641; C1882; C1900; J0690; J1100; J1580; J2250; J2704; J3010; Q9967

== ENCOUNTER 2021-01-01 18:24 | Inpatient (IN) | payer OTHER, MEDICARE ==
[2021-01-01 19:23] LABS: PTT 31.8 sec (22.9-36.1); Prothrombin Time 13.5 sec (12.0-14.7)
[2021-01-01] MEDS ORDERED: Dextrose 50% Abboject 50 ML SYRINGE SLOW IVP PRN (20:26)
[2021-01-01] MEDS ORDERED: Dextrose 5% in Water 1,000 ML IV PRN (20:26)
[2021-01-01] MEDS ORDERED: HumaLOG 300 UNITS/3 ML VIAL SC PRN (20:26)
[2021-01-01] MEDS ORDERED: Ondansetron PF 4 MG/2 ML Vial IVP PRN (20:26)
[2021-01-01] MEDS ORDERED: hydrALAZINE 20 MG/ML VIAL SLOW IVP PRN (20:29)
[2021-01-01] MEDS ORDERED: Labetalol HCl 100 MG/20 ML VIAL SLOW IVP PRN (20:30)
[2021-01-01 20:35] LABS: SARS-CoV-2 NAA Rapid Test Not Detected (NotDetected)
[2021-01-01] MEDS ORDERED: Lisinopril 10 MG TAB PO SCH (21:00)
[2021-01-01 21:39] VITALS: BMI 28.8
[2021-01-01] MEDS: Acetaminophen 325 MG TAB PO SCH (21:55)
[2021-01-01] MEDS: Famotidine 20 MG TAB PO SCH (21:55)
[2021-01-01] MEDS: Gabapentin 100 MG CAP PO SCH (21:57)
[2021-01-01] MEDS: OXcarbazepine 150 MG TAB PO SCH (22:11)
[2021-01-02] MEDS: Acetaminophen 325 MG TAB PO SCH ×2 (03:39→09:04)
[2021-01-02 03:59] LABS: #Eosinphils 0.5 thou/uL (0.0-0.7); #Lymphocytes 2.5 thou/uL (1.20-3.40); #Monocytes 0.8 thou/uL (0.11-0.59); #Neutrophils 4.4 thou/uL (1.40-6.50); %Eosinophils 5.8 % (0.0-10.0); %Lymphocytes 30.2 % (21.0-51.0); %Monocytes 10.3 % (0.0-10.0); %Neutrophils 53.6 % (42.0-75.0); Hemoglobin 13.2 g/dL (14.0-18.0); Mean Corpuscular HGB CONC 33.9 g/dL (32.0-36.0); Mean Corpuscular Hemoglobin 31.4 pg (27.0-31.0); Mean Corpuscular Volume 92.8 fL (78.0-98.0); Platelet Count 163 thou/uL (130-400); RBC Distribution Width 12.4 % (11.5-14.5); Red Blood Cell (RBC) Count 4.21 mill/uL (4.70-6.10); White Blood Cell (WBC) Count 8.1 thou/uL (4.8-10.8)
[2021-01-02 04:24] LABS: Anion Gap 11 mmol/L (10-20); BUN (Urea Nitrogen) 13 mg/dL (8.4-25.7); Calc. Creatinine Clearance 64 mL/min (70-130); Calcium 9.1 mg/dL (7.8-10.44); Carbon Dioxide 27 mmol/L (23-31); Chloride 99 mmol/L (98-107); Glucose 130 mg/dL (83-110); Phosphorus 3.1 mg/dL (2.3-4.7); Potassium 3.5 mmol/L (3.5-5.1); Sodium 133 mmol/L (136-145)
[2021-01-02] MEDS: Gabapentin 100 MG CAP PO SCH (08:55)
[2021-01-02] MEDS ORDERED: Multivit, Therapeutic 1 TAB PO SCH (09:00)
[2021-01-02] MEDS ORDERED: Donepezil HCl 10 MG TAB PO SCH (09:00)
[2021-01-02 09:01] VITALS: BP 109/56
[2021-01-02] MEDS: Famotidine 20 MG TAB PO SCH (09:05)
[2021-01-02] MEDS: OXcarbazepine 150 MG TAB PO SCH (09:40)
[2021-01-02 13:08] VITALS: TEMP 97.8
== END 2021-01-02 13:59 | disposition home or self-care (01) | DRG 86 ==
LOC: ERS 18:24 → CCU 19:42
PROVIDERS: ADMIT Surgery; ATTEND Surgery
DX: S06.5X0A Traumatic subdural hemorrhage without loss of consciousness, initial encounter (principal); I50.22 Chronic systolic (congestive) heart failure; F03.90 Unspecified dementia, unspecified severity, without behavioral disturbance, psychotic disturbance, mood disturbance, and anxiety; I11.0 Hypertensive heart disease with heart failure; W01.10XA Fall on same level from slipping, tripping and stumbling with subsequent striking against unspecified object, initial encounter; R73.03 Prediabetes; R40.2142 Coma scale, eyes open, spontaneous, at arrival to emergency department; R40.2242 Coma scale, best verbal response, confused conversation, at arrival to emergency department; R40.2362 Coma scale, best motor response, obeys commands, at arrival to emergency department; Z20.822 Contact with and (suspected) exposure to COVID-19; Y92.009 Unspecified place in unspecified non-institutional (private) residence as the place of occurrence of the external cause; Z95.810 Presence of automatic (implantable) cardiac defibrillator; Z79.01 Long term (current) use of anticoagulants; Z79.899 Other long term (current) drug therapy; Z87.891 Personal history of nicotine dependence
CPT/HCPCS: 36415; 36416; 70450; 72125; 80048; 83735; 84100; 85025; 85610; 85730; G0390; U0002

== ENCOUNTER 2021-10-27 05:52 | Emergency (ER) | payer MEDICARE ==
[2021-10-27 06:38] LABS: #Eosinphils 0.3 thou/uL (0.0-0.7); #Lymphocytes 1.4 thou/uL (1.20-3.40); #Monocytes 0.8 thou/uL (0.11-0.59); %Basophils 0.2 % (0.0-1.0); %Eosinophils 3.7 % (0.0-10.0); %Monocytes 10.1 % (0.0-10.0); %Neutrophils 66.9 % (42.0-75.0); Hemoglobin 16.1 g/dL (14.0-18.0); Mean Corpuscular HGB CONC 32.8 g/dL (32.0-36.0); Mean Corpuscular Hemoglobin 31.5 pg (27.0-31.0); Mean Corpuscular Volume 96.2 fL (78.0-98.0); Mean Platelet Volume 6.7 fL (7.4-10.4); Platelet Count 175 thou/uL (130-400); RBC Distribution Width 12.2 % (11.5-14.5); Red Blood Cell (RBC) Count 5.12 mill/uL (4.70-6.10); White Blood Cell (WBC) Count 7.4 thou/uL (4.8-10.8)
[2021-10-27 07:07] LABS: ALT (SGPT) 33 U/L (8-55); AST (SGOT) 34 U/L (5-34); Albumin 3.8 g/dL (3.4-4.8); Alkaline Phosphatase 152 U/L (40-110); Anion Gap 12 mmol/L (10-20); BUN (Urea Nitrogen) 19 mg/dL (8.4-25.7); Bilirubin, Total 0.5 mg/dL (0.2-1.2); Calc. Creatinine Clearance 0 mL/min (70-130); Calcium 8.8 mg/dL (7.8-10.44); Carbon Dioxide 25 mmol/L (23-31); Chloride 108 mmol/L (98-107); Globulin 2.5 g/dL (2.4-3.5); Glucose 138 mg/dL (83-110); Potassium 4.2 mmol/L (3.5-5.1); Protein, Total 6.3 g/dL (5.8-8.1); Sodium 141 mmol/L (136-145)
== END 2021-10-27 07:26 | disposition home or self-care (01) ==
LOC: ERS 05:52
DX: R51.9 Headache, unspecified (principal); E78.5 Hyperlipidemia, unspecified; I10 Essential (primary) hypertension; Z87.891 Personal history of nicotine dependence; Z79.899 Other long term (current) drug therapy
CPT/HCPCS: 36415; 70450; 80053; 85025

== ENCOUNTER 2022-03-30 12:34 | Outpatient (CLI) | payer MEDICARE, OTHER | END 2022-03-30 12:35 | disposition home or self-care (01) | LOC: BICCT 12:34 | PROVIDERS: ATTEND Thoracic Surgery (Cardiothoracic Vascular Surgery) | DX: I71.4 Abdominal aortic aneurysm, without rupture (principal); I70.0 Atherosclerosis of aorta; K80.20 Calculus of gallbladder without cholecystitis without obstruction | CPT/HCPCS: 74174; 82565 ==